=== PATIENT | female | born 1940 | race Caucasian/White ===

== ENCOUNTER 2022-04-05 11:28 | Inpatient (IN) | payer MEDICARE ==
[2022-04-05] MEDS ORDERED: DUONEB 0.5-3 MG/3 ml Neb IH ONE ×2 (12:09→12:14)
[2022-04-05] MEDS ORDERED: solu-MEDROL 125 MG, Sterile H2O 10 ml 2 ML IV ONE ×2 (12:09)
[2022-04-05] MEDS ORDERED: Zofran 4 MG/2 ML VIAL IV ONE (12:16)
[2022-04-05] MEDS ORDERED: MORPHINE SULFATE 2 MG INJ IV ONE (12:16)
[2022-04-05 12:18] LABS: Absolute Neutrophil Ct (ANC) 18.29 x10^3/uL (1.4-6.9); Basophil (Absolute #) 0.07 x10^3/uL (0-0.4); Eosinophil % 0.1 % (0.00-5.0); Eosinophil (Absolute #) 0.03 x10^3/uL (0-0.5); Hematocrit 40.3 % (35-47); Hemoglobin 12.9 g/dL (12.0-16.0); Lymphocyte (Absolute #) 3.07 x10^3/uL (1.0-4.6); Lymphocytes % 13.5 % (24.0-44.0); Mean Cell Volume 93.5 fL (78-100); Mean Corpuscular Hemoglobin 29.9 pg (26-32); Mean Platelet Volume 10.7 fL (7.5-11.0); Monocyte (Absolute #) 1.12 x10^3/uL (0.0-1.3); Monocytes % 4.9 % (0.0-12.0); Neutrophil % 80.8 % (36.0-66.0); Platelet Count 321 x10^3/uL (150-450); Red Blood Count 4.31 x10^6/uL (4.1-5.4); Red Cell Distribution Width 13.2 % (11.5-14.0); White Blood Count 22.7 x10^3/uL (4.0-10.5)
[2022-04-05] MEDS ORDERED: Sterile H2O 10 ml IJ ONE (12:20)
[2022-04-05] MEDS ORDERED: MORPHINE SULFATE 2 MG INJ ONE (12:20)
[2022-04-05] MEDS ORDERED: Zofran 4 MG/2 ML VIAL ONE (12:20)
[2022-04-05] MEDS ORDERED: solu-MEDROL ONE (12:21)
--- NOTE | 2022-04-05 12:34 | XRAY ---
Indication: Cough. Comparison: None Portable chest demonstrates mild right infiltrate/atelectasis without consolidation or large effusion. Remaining heart and left lung unremarkable. Bony thorax intact with mild osteopenia and moderate dextrorotoscoliosis.
[2022-04-05] MEDS ORDERED: Levofloxacin 500MG/100ML D5W 500 MG/100 ML BAG IV STA (12:45)
[2022-04-05] MEDS ORDERED: PIPERACILLIN/TAZOBACTAM 3.375 GM in Sodium Chloride 100ML MINI-BAG PLUS 100 ML IV ONE (12:45)
[2022-04-05 13:05] LABS: ALBUMIN 4.3 g/dL (3.5-5.0); ALKALINE PHOSPHATASE 108 U/L (38-126); ANION GAP 9.8 MEQ/L (5-15); BLOOD UREA NITROGEN 11 mg/dL (7-17); CHLORIDE 99 mmol/L (98-107); Calcium 9.2 mg/dL (8.4-10.2); Carbon Dioxide 31 mmol/L (22-30); Creatinine 1 0.48 mg/dL (0.52-1.04); EST GLOMERULAR FILTRATION RATE > 60.0 ML/MIN; Glucose 129 mg/dL (74-106); NT PRO BNP 245 pg/mL (0-1800); Potassium 3.5 mmol/L (3.5-5.1); SGOT/AST 28 U/L (14-36); SGPT/ALT 18 U/L (0-35); SODIUM 136 mmol/L (137-145)
--- NOTE | 2022-04-05 13:07 | XRAY ---
Indication: Pain. No known injury. 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 Elsewhere osteopenia and 2.3 cm calcified uterine fibroid. No other bony, articular, or soft tissue abnormalities.
[2022-04-05 13:18] LABS: INFLUENZA A NEGATIVE (NEGATIVE); INFLUENZA B NEGATIVE (NEGATIVE); RESPIRATORY SYNCTIAL VIRUS NEGATIVE (Negative); SARS-CoV-2 Xpert Express NEGATIVE (NEGATIVE)
[2022-04-05] MEDS ORDERED: Sodium Chloride 0.9% 500 ML 500 ML IV ONE ×2 (13:50→14:07)
[2022-04-05] MEDS ORDERED: PIPERACILLIN/TAZOBACTAM IV ONE (13:53)
[2022-04-05] MEDS ORDERED: Sodium Chloride 100ML MINI-BAG PLUS 100 ML IV ONE (13:53)
--- NOTE | 2022-04-05 13:59 | ERPHSYRPT ---
- History of Present Illness Time Seen by Provider: 04/05/22 11:34 Source: patient, family Exam Limitations: clinical condition Patient Subjective Stated Complaint: C/O cough and LLE pain. Nurse[facility] from [facility] states that cough has become progressivly worse over the past 2 weeks. Sister, legal tomlinson is at bedside and concerned about the fever reported to her by the [facility]. Patient is concerned about left leg pain. Triage Nursing Assessment: Patient brought back to ED by W/C. She is alert, speaking rapidly, and deffers to her sister to answer medical questions that she is unsure of. This is patient's normal mental status per Sister's (Alva) reports. Alva indicates patient become more anxious when ill. Patient arrived wearing 02 @ 2L per N/C and sating 88%; oxygen increased to 4L per N/C and increased to 91%. A moist, non-productive cough is noted. Patient was assisted into the bed by 2 staff and s/s of pain were noted to her LLE. Skin is warm to touch, pale. Oral mucosa noted to be dry as well. Physician History: 82 years old female with history of cerebral palsy, chronic respiratory failure on 2 L oxygen is brought in the ER with worsening cough for the last 2 weeks with subjective feeling of fever and chills. Patient also have chronic difficulty swallowing, high risk for aspiration. Patient oxygen saturation is around 88% on 2 L and increasing to 4 L has 92%. Complaining of some chest discomfort because of coughing. She is also complaining of left hip pain without any fall or trauma. Not a good historian and history is limited Timing/Duration: week(s) (2), gradual onset Activities at Onset: activity, rest Severity of Dyspnea-Max: moderate Severity of Dyspnea-Current: moderate Possible Cause: unknown cause Modifying Factors: Improves With: coughing, oxygen Associated Symptoms: cough, fever, wheezing, productive cough, tightness Allergies/Adverse Reactions: No Known Drug Allergies Allergy (Verified 04/05/22 12:03) Home Medications: Acetaminophen 325 mg [Tylenol 325 mg] 325 mg PO Q4HPRN PRN 04/05/22 [History] Albuterol Sulfate [Albuterol Sulfate Hfa] 2 puff IH Q6HPRN PRN 04/05/22 [History] Budesonide/Formoterol Fumarate [Budesonide-Formoterol 160-4.5] 2 puff IH BID 04/05/22 [History] Calcium Carbonate [Calcium] 1,200 mg PO DAILY 04/05/22 [History] Diclofenac Sodium [Voltaren Arthritis Pain] 1 gm TOP Q6HPRN PRN 04/05/22 [History] Guaifenesin 600 mg ER [Mucinex 600MG ER Tabs] 1,200 mg PO BID 04/05/22 [History] Guaifenesin/Dextromethorphan [Coricidin Hbp Chest Jose-Cough] 2 tab PO BIDPRN PRN 04/05/22 [History] Guaifenesin/Dextromethorphan [Guaifenesin-Dm 100-10 mg/5 ml] 10 ml PO Q6HPRN PRN 04/05/22 [History] Hydrocortisone 1% Cream [Cortisone 1% Cream] 1 gm TP Q8HPRN PRN 04/05/22 [History] Hypromellose [Tears Lubricant Eye Drop] 15 ml OP TID 04/05/22 [History] Montelukast Sodium 10 mg [Singulair 10 MG] 10 mg PO HS 04/05/22 [History] Omeprazole 20 mg PO BID 04/05/22 [History] Ondansetron ODT 4 MG [Zofran Odt 4 mg] 4 mg PO Q6HPRN PRN 04/05/22 [History] hydroCHLOROthiazide [Hydrochlorothiazide] 25 mg PO UD 04/05/22 [History] polyethylene glycoL 3350 [Polyethylene Glycol 3350] 17 gm PO DAILY PRN PRN 04/05/22 [History] Hx Tetanus, Diphtheria Vaccination/Date Given: Yes Hx Influenza Vaccination/Date Given: Yes Hx Pneumococcal Vaccination/Date Given: Yes Immunizations Up to Date: Yes Travel Risk - International Travel Have you traveled outside of the country in past 3 weeks: No - Coronavirus Screening Are you exhibiting any of the following symptoms?: Yes Symptoms: Fever, Cough: New Onset, Shortness of Breath Close contact with a COVID-19 positive Pt in past 14-21 Days: Yes - Vaccine Status Have you recieved a Covid-19 vaccination: Yes Cad Intern: Unknown - Vaccination Dates Dates if Unknown: ? - Review of Systems All Other Systems: Unable due to condition - Past Medical History Pertinent Past Medical History: Yes Neurological History: Other Cardiac History: Peripheral Vascular Disease Respiratory History: Pneumonia, Other Musculoskeletal History: Other GI Medical History: GERD Other Medical History: Hemorrhoids, Dysphagia, Seasonal Allergies, Age-related physical debility, Cerebral Palsy, Muscle Weakness, Airway Disease, Atelectasis, contracture requiring splint use to hands at bedtime - Past Surgical History Past Surgical History: Yes Musculoskeletal: Other Other Surgical History: Left hip fracture repair, surgeries as a child related to CP (sister and patient are unaware of the specific names of surgies). - Social History Smoking Status: Never smoker Exposure to second hand smoke: No Drug Use: none Patient Lives Alone: No ([facility]) - Nursing Vital Signs Nursing Vital Signs: Initial Vital Signs Temperature 99.7 F 04/05/22 11:28 Pulse Rate 121 H 04/05/22 11:28 Respiratory Rate 23 04/05/22 11:28 Blood Pressure 150/68 04/05/22 11:28 O2 Sat by Pulse Oximetry 95 04/05/22 11:28 Pain Scale Pain Intensity 0 - Physical Exam General Appearance: no apparent distress, alert Eye Exam: PERRL/EOMI Ears, Nose, Throat Exam: hearing grossly normal, pharyngeal erythema Neck Exam: normal inspection, supple, full range of motion Respiratory Exam: diminished breath sounds, crackles/rales, wheezing Cardiovascular/Chest Exam: normal heart sounds, tachycardia Abdominal/Gastrointestinal Exam: soft, No normal bowel sounds Extremity Exam: limited range of motion (Left hip) Neurologic Exam: alert, oriented x 3, cooperative Skin Exam: normal color SpO2 Interpretation: hypoxic, O2 applied SpO2: 96 O2 Delivery: Nasal Cannula - Course EKG Interpreted by Me: RATE (120), Sinus Tach, NORMAL AXIS, NORMAL INTERVALS, NORMAL QRS, Non-specific ST Changes Ordered Tests: Medication Summary Discontinued Medications Generic Name Dose Route Start Last Admin Trade Name Freq PRN Reason Stop Dose Admin Acetaminophen 650 mg 04/05/22 14:32 04/08/22 13:51 Acetaminophen 325 Mg Tablet PO 05/05/22 14:31 650 mg Q4H PRN PRN Administration PAIN AND/OR FEVER Albuterol Sulfate 2 puff 04/05/22 19:00 Albuterol Common Canister Inhaler 05/05/22 18:59 QIDRT NILTON Albuterol/Ipratropium 3 ml 04/05/22 12:09 04/05/22 12:20 Ipratropium/Albuterol Sulfate 3 Ml Ampul.Neb 04/05/22 12:10 3 ml STAT ONE Administration Albuterol/Ipratropium Confirm 04/05/22 12:14 Ipratropium/Albuterol Sulfate 3 Ml Ampul.Neb Administered 04/05/22 12:15 Dose 3 ml IH .STK-MED ONE Albuterol/Ipratropium 3 ml 04/05/22 15:00 04/05/22 20:13 Ipratropium/Albuterol Sulfate 3 Ml Ampul.Neb 05/05/22 14:59 Not Given QIDRT NILTON Albuterol/Ipratropium 3 ml 04/05/22 19:00 04/09/22 12:57 Ipratropium/Albuterol Sulfate 3 Ml Ampul.Neb 05/05/22 18:59 3 ml Q6HRT NILTON Administration Artificial Tears 0 ml 04/05/22 22:00 04/09/22 11:24 Polyvinyl Alcohol 15 Ml Bottle OP 05/05/22 21:59 15 ml TID NILTON Administration Benzonatate 100 mg 04/07/22 10:00 04/07/22 21:27 Benzonatate 100 Mg Capsule PO 05/07/22 09:59 100 mg QID NILTON Administration Benzonatate 200 mg 04/08/22 10:00 04/09/22 11:23 Benzonatate 100 Mg Capsule PO 05/08/22 09:59 200 mg TID NILTON Administration Calcium Carbonate 2 tab 04/05/22 18:00 04/09/22 11:24 Calcium Carbonate 500 Mg/Vitamin D 1 Tab Tablet PO 05/05/22 17:59 2 tab DAILY NILTON Administration Methylprednisolone Sodium 0 mg 04/05/22 12:09 04/05/22 12:23 Succinate 125 mg/ Sterile IV 04/05/22 12:10 125 mg Water 2 ml STAT ONE Administration Methylprednisolone Sodium 0 mg 04/05/22 18:00 04/09/22 12:42 Succinate 60 mg/ Sterile Water IV 05/05/22 17:59 60 mg 2 ml Q6HT NILTON Administration Diclofenac Sodium 1 gm 04/05/22 17:23 Diclofenac Sodium 100 Gm Gel..Gram. TP 05/05/22 17:22 Q6HPRN PRN PAIN Guaifenesin 1,200 mg 04/05/22 22:00 04/09/22 11:23 Guaifenesin 600 Mg Tablet Er PO 05/05/22 21:59 1,200 mg BID NILTON Administration Hydrochlorothiazide 25 mg 04/07/22 10:00 04/09/22 11:24 Hydrochlorothiazide 25 Mg Tablet PO 05/07/22 09:59 25 mg QOD NILTON Administration Hydrocortisone 0 gm 04/05/22 17:23 Hydrocortisone 1% Cream 28 Gm Tube TP 05/05/22 17:22 Q8HPRN PRN HEMORRHOIDS Levofloxacin/Dextrose 500 mg in 100 mls @ 100 mls/hr 04/05/22 12:45 04/05/22 16:06 Levofloxacin 500mg/100ml D5w IV 04/05/22 13:44 100 mls/hr STAT STA Administration Piperacillin Sod/Tazobactam 100 mls @ 200 mls/hr 04/05/22 12:45 04/05/22 13:54 Sod 3.375 gm/ Sodium Chloride IV 04/05/22 13:14 200 mls/hr STAT ONE Administration Sodium Chloride 500 mls @ 500 mls/hr 04/05/22 13:50 04/05/22 14:08 Sodium Chloride 0.9% 500 Ml IV 04/05/22 14:49 500 mls/hr .Q1H ONE Administration Sodium Chloride Confirm 04/05/22 13:53 Sodium Chloride 100ml Mini-Bag Plus Administered 04/05/22 13:54 Dose 100 mls @ ud IV .STK-MED ONE Sodium Chloride Confirm 04/05/22 14:07 Sodium Chloride 0.9% 500 Ml Administered 04/05/22 14:08 Dose 500 mls @ ud IV .STK-MED ONE Levofloxacin/Dextrose 500 mg in 100 mls @ 100 mls/hr 04/06/22 10:00 Levofloxacin 500mg/100ml D5w IV 05/06/22 09:59 Q24H10 NILTON Piperacillin Sod/Tazobactam 100 mls @ 200 mls/hr 04/05/22 18:00 04/09/22 12:48 Sod 3.375 gm/ Sodium Chloride IV 04/10/22 17:59 200 mls/hr Q6HT NILTON Administration Potassium Chloride/Sodium Chloride 1,000 mls @ 75 mls/hr 04/05/22 14:32 04/08/22 13:52 Sodium Chloride 0.9% W/ 20 Meq Kcl/Liter IV 05/05/22 14:31 75 mls/hr .[id number] NILTON Administration Sodium Chloride Confirm 04/05/22 14:49 Sodium Chloride 0.9% 1000 Ml Administered 04/05/22 14:50 Dose 1,000 mls @ ud .ROUTE .STK-MED ONE Levofloxacin/Dextrose Confirm 04/05/22 14:50 Levofloxacin 500mg/100ml D5w Administered 04/05/22 14:51 Dose 500 mg in 100 mls @ ud IV .STK-MED ONE Levofloxacin/Dextrose 750 mg in 150 mls @ 100 mls/hr 04/06/22 22:00 04/08/22 23:31 Levofloxacin 750mg/150ml D5w IV 05/06/22 21:59 100 mls/hr Q48H NILTON Administration Methylprednisolone Sodium Succinate Confirm 04/05/22 12:21 Methylprednis Sod Succ 125 Mg/2 Ml Vial Administered 04/05/22 12:22 Dose 125 mg .ROUTE .STK-MED ONE Miscellaneous Information 1 each 04/05/22 17:45 Medication Intervention 1 Each Each 05/05/22 17:44 .RN TO CHECK NILTON Montelukast Sodium 10 mg 04/05/22 22:00 04/08/22 23:31 Montelukast Sodium 10 Mg Tablet PO 05/05/22 21:59 10 mg HS NILTON Administration Morphine Sulfate 2 mg 04/05/22 12:16 04/05/22 12:23 Morphine Sulfate 2 Mg/Ml Inj IV 04/05/22 12:17 2 mg STAT ONE Administration Morphine Sulfate Confirm 04/05/22 12:20 Morphine Sulfate 2 Mg/Ml Inj Administered 04/05/22 12:21 Dose 2 mg .ROUTE .STK-MED ONE Morphine Sulfate 2 mg 04/05/22 14:32 04/07/22 02:49 Morphine Sulfate 2 Mg/Ml Inj IV 04/10/22 14:31 2 mg Q4H PRN PRN Administration PAIN Non-Formulary Medication 1 each 04/05/22 18:03 04/05/22 20:13 Pharmacy Dosing Request 04/05/22 18:04 Not Given STAT ONE Ondansetron HCl 4 mg 04/05/22 12:16 04/05/22 12:23 Ondansetron Hcl 4 Mg/2 Ml Vial IV 04/05/22 12:17 4 mg STAT ONE Administration Ondansetron HCl Confirm 04/05/22 12:20 Ondansetron Hcl 4 Mg/2 Ml Vial Administered 04/05/22 12:21 Dose 4 mg .ROUTE .STK-MED ONE Ondansetron HCl 4 mg 04/05/22 14:32 Ondansetron Hcl 4 Mg/2 Ml Vial IV 05/05/22 14:31 Q6H PRN PRN NAUSEA/VOMITING Ondansetron HCl 4 mg 04/05/22 17:23 Zofran 4 Mg/Udtablet Orally Disintegrating PO 05/05/22 17:22 Q6HPRN PRN NAUSEA Pantoprazole Sodium 40 mg 04/05/22 16:00 04/05/22 16:04 Pantoprazole 40 Mg Vial IV 05/05/22 15:59 40 mg Q24H10 NILTON Administration Pantoprazole Sodium 40 mg 04/05/22 22:00 04/09/22 11:24 Protonix (Pantoprazole) 40 Mg Tablet PO 05/05/22 21:59 40 mg BID NILTON Administration Piperacillin Sod/Tazobactam Sod Confirm 04/05/22 13:53 Piperacillin/Tazobactam Sodium 3.375 Gm Vial Administered 04/05/22 13:54 Dose 3.375 gm IV .STK-MED ONE Polyethylene Glycol 17 gm 04/05/22 17:23 Polyethylene Glycol 3350 17 Gm Packet PO 05/05/22 17:22 DAILY PRN PRN CONSTIPATION Potassium Bicarbonate 25 meq 04/09/22 09:29 04/09/22 11:21 Potassium Bicarbonate 25 Meq Tab PO 04/09/22 09:30 25 meq STAT ONE Administration Fluticasone/Salmeterol 2 puff 04/05/22 19:00 04/09/22 07:29 Fluticasone/Salmeterol 230/21 Common Canister IH 05/05/22 18:59 2 puff BIDRT NILTON Administration Sterile Water Confirm 04/05/22 12:20 Water For Injection,Sterile 10 Ml Vial Administered 04/05/22 12:21 Dose 10 ml IJ .STK-MED ONE Lab/Rad Data: Laboratory Result Diagrams 04/06/22 05:15 04/06/22 05:15 Laboratory Results 04/06/22 04/06/22 04/05/22 Range/Units 05:15 05:15 Unknown WBC 17.4 H (4.0-10.5) x10^3/uL RBC 3.67 L (4.1-5.4) x10^6/uL Hgb 10.8 L (12.0-16.0) g/dL Hct 36.5 (35-47) % MCV 99.5 D (78-100) fL MCH 29.4 (26-32) pg MCHC 29.6 L (32-36) g/dL RDW 13.3 (11.5-14.0) % Plt Count 258 (150-450) x10^3/uL MPV 10.7 (7.5-11.0) fL Gran % 93.0 H (36.0-66.0) % Immature Gran % (Auto) 0.4 (0.00-0.4) % Nucleat RBC Rel Count 0.0 (0.00-0.1) % Eos # (Auto) 0 (0-0.5) x10^3/uL Immature Gran # (Auto) 0.07 H (0.00-0.03) x10^3u/L Absolute Lymphs (auto) 1.04 (1.0-4.6) x10^3/uL Absolute Monos (auto) 0.09 (0.0-1.3) x10^3/uL Absolute Nucleated RBC 0.00 (0.00-0.01) x10^3u/L Lymphocytes % 6.0 L (24.0-44.0) % Monocytes % 0.5 (0.0-12.0) % Eosinophils % 0.0 (0.00-5.0) % Basophils % 0.1 (0.0-0.4) % Absolute Granulocytes 16.14 H (1.4-6.9) x10^3/uL Basophils # 0.02 (0-0.4) x10^3/uL Sodium 139 (137-145) mmol/L Potassium 3.7 (3.5-5.1) mmol/L Chloride 107 (98-107) mmol/L Carbon Dioxide 26 (22-30) mmol/L Anion Gap 9.5 (5-15) MEQ/L BUN 18 H (7-17) mg/dL Creatinine 0.54 (0.52-1.04) mg/dL Estimated GFR > 60.0 ML/MIN Glucose 193 H (74-106) mg/dL Lactic Acid (0.4-2.0) Calcium 8.6 (8.4-10.2) mg/dL Magnesium (1.6-2.3) mg/dL Total Bilirubin 0.40 (0.2-1.3) mg/dL AST 19 (14-36) U/L ALT 18 (0-35) U/L Alkaline Phosphatase 81 (38-126) U/L Troponin I (0.000-0.034) ng/mL NT-Pro-B Natriuret Pep (0-1800) pg/mL Serum Total Protein 6.7 (6.3-8.2) g/dL Albumin 3.4 L (3.5-5.0) g/dL Procalcitonin 0.092 H (0.030-0.080) ng/mL Influenza Type A Ag (NEGATIVE) Influenza Type B Ag (NEGATIVE) RSV (PCR) (Negative) SARS-CoV-2 (PCR) (NEGATIVE) 04/05/22 04/05/22 04/05/22 Range/Units 20:00 15:55 12:25 WBC (4.0-10.5) x10^3/uL RBC (4.1-5.4) x10^6/uL Hgb (12.0-16.0) g/dL Hct (35-47) % MCV (78-100) fL MCH (26-32) pg MCHC (32-36) g/dL RDW (11.5-14.0) % Plt Count (150-450) x10^3/uL MPV (7.5-11.0) fL Gran % (36.0-66.0) % Immature Gran % (Auto) (0.00-0.4) % Nucleat RBC Rel Count (0.00-0.1) % Eos # (Auto) (0-0.5) x10^3/uL Immature Gran # (Auto) (0.00-0.03) x10^3u/L Absolute Lymphs (auto) (1.0-4.6) x10^3/uL Absolute Monos (auto) (0.0-1.3) x10^3/uL Absolute Nucleated RBC (0.00-0.01) x10^3u/L Lymphocytes % (24.0-44.0) % Monocytes % (0.0-12.0) % Eosinophils % (0.00-5.0) % Basophils % (0.0-0.4) % Absolute Granulocytes (1.4-6.9) x10^3/uL Basophils # (0-0.4) x10^3/uL Sodium (137-145) mmol/L Potassium (3.5-5.1) mmol/L Chloride (98-107) mmol/L Carbon Dioxide (22-30) mmol/L Anion Gap (5-15) MEQ/L BUN (7-17) mg/dL Creatinine (0.52-1.04) mg/dL Estimated GFR ML/MIN Glucose (74-106) mg/dL Lactic Acid (0.4-2.0) Calcium (8.4-10.2) mg/dL Magnesium (1.6-2.3) mg/dL Total Bilirubin (0.2-1.3) mg/dL AST (14-36) U/L ALT (0-35) U/L Alkaline Phosphatase (38-126) U/L Troponin I < 0.012 < 0.012 (0.000-0.034) ng/mL NT-Pro-B Natriuret Pep (0-1800) pg/mL Serum Total Protein (6.3-8.2) g/dL Albumin (3.5-5.0) g/dL Procalcitonin (0.030-0.080) ng/mL Influenza Type A Ag NEGATIVE (NEGATIVE) Influenza Type B Ag NEGATIVE (NEGATIVE) RSV (PCR) NEGATIVE (Negative) SARS-CoV-2 (PCR) NEGATIVE (NEGATIVE) 04/05/22 04/05/22 04/05/22 Range/Units 12:25 11:59 11:59 WBC (4.0-10.5) x10^3/uL RBC (4.1-5.4) x10^6/uL Hgb (12.0-16.0) g/dL Hct (35-47) % MCV (78-100) fL MCH (26-32) pg MCHC (32-36) g/dL RDW (11.5-14.0) % Plt Count (150-450) x10^3/uL MPV (7.5-11.0) fL Gran % (36.0-66.0) % Immature Gran % (Auto) (0.00-0.4) % Nucleat RBC Rel Count (0.00-0.1) % Eos # (Auto) (0-0.5) x10^3/uL Immature Gran # (Auto) (0.00-0.03) x10^3u/L Absolute Lymphs (auto) (1.0-4.6) x10^3/uL Absolute Monos (auto) (0.0-1.3) x10^3/uL Absolute Nucleated RBC (0.00-0.01) x10^3u/L Lymphocytes % (24.0-44.0) % Monocytes % (0.0-12.0) % Eosinophils % (0.00-5.0) % Basophils % (0.0-0.4) % Absolute Granulocytes (1.4-6.9) x10^3/uL Basophils # (0-0.4) x10^3/uL Sodium 136 L (137-145) mmol/L Potassium 3.5 (3.5-5.1) mmol/L Chloride 99 (98-107) mmol/L Carbon Dioxide 31 H (22-30) mmol/L Anion Gap 9.8 (5-15) MEQ/L BUN 11 (7-17) mg/dL Creatinine 0.48 L (0.52-1.04) mg/dL Estimated GFR > 60.0 ML/MIN Glucose 129 H (74-106) mg/dL Lactic Acid 1.2 (0.4-2.0) Calcium 9.2 (8.4-10.2) mg/dL Magnesium 2.0 (1.6-2.3) mg/dL Total Bilirubin 0.70 (0.2-1.3) mg/dL AST 28 (14-36) U/L ALT 18 (0-35) U/L Alkaline Phosphatase 108 (38-126) U/L Troponin I < 0.012 (0.000-0.034) ng/mL NT-Pro-B Natriuret Pep 245 (0-1800) pg/mL Serum Total Protein 8.0 (6.3-8.2) g/dL Albumin 4.3 (3.5-5.0) g/dL Procalcitonin (0.030-0.080) ng/mL Influenza Type A Ag (NEGATIVE) Influenza Type B Ag (NEGATIVE) RSV (PCR) (Negative) SARS-CoV-2 (PCR) (NEGATIVE) 04/05/22 Range/Units 11:59 WBC 22.7 H (4.0-10.5) x10^3/uL RBC 4.31 (4.1-5.4) x10^6/uL Hgb 12.9 (12.0-16.0) g/dL Hct 40.3 (35-47) % MCV 93.5 (78-100) fL MCH 29.9 (26-32) pg MCHC 32.0 (32-36) g/dL RDW 13.2 (11.5-14.0) % Plt Count 321 (150-450) x10^3/uL MPV 10.7 (7.5-11.0) fL Gran % 80.8 H (36.0-66.0) % Immature Gran % (Auto) 0.4 (0.00-0.4) % Nucleat RBC Rel Count 0.0 (0.00-0.1) % Eos # (Auto) 0.03 (0-0.5) x10^3/uL Immature Gran # (Auto) 0.09 H (0.00-0.03) x10^3u/L Absolute Lymphs (auto) 3.07 (1.0-4.6) x10^3/uL Absolute Monos (auto) 1.12 (0.0-1.3) x10^3/uL Absolute Nucleated RBC 0.00 (0.00-0.01) x10^3u/L Lymphocytes % 13.5 L (24.0-44.0) % Monocytes % 4.9 (0.0-12.0) % Eosinophils % 0.1 (0.00-5.0) % Basophils % 0.3 (0.0-0.4) % Absolute Granulocytes 18.29 H (1.4-6.9) x10^3/uL Basophils # 0.07 (0-0.4) x10^3/uL Sodium (137-145) mmol/L Potassium (3.5-5.1) mmol/L Chloride (98-107) mmol/L Carbon Dioxide (22-30) mmol/L Anion Gap (5-15) MEQ/L BUN (7-17) mg/dL Creatinine (0.52-1.04) mg/dL Estimated GFR ML/MIN Glucose (74-106) mg/dL Lactic Acid (0.4-2.0) Calcium (8.4-10.2) mg/dL Magnesium (1.6-2.3) mg/dL Total Bilirubin (0.2-1.3) mg/dL AST (14-36) U/L ALT (0-35) U/L Alkaline Phosphatase (38-126) U/L Troponin I (0.000-0.034) ng/mL NT-Pro-B Natriuret Pep (0-1800) pg/mL Serum Total Protein (6.3-8.2) g/dL Albumin (3.5-5.0) g/dL Procalcitonin (0.030-0.080) ng/mL Influenza Type A Ag (NEGATIVE) Influenza Type B Ag (NEGATIVE) RSV (PCR) (Negative) SARS-CoV-2 (PCR) (NEGATIVE) - Progress Progress: improved Air Movement: fair Progress Note: 04/05/22 14:07 She is given DuoNeb and Solu-Medrol, increased oxygen to 4 L. Feeling better on reevaluation. She is also given symptomatic treatment for pain left hip. X- ray is chest showed right-sided infiltrative process with a white count of 22 and started on broad-spectrum antibiotics covering for aspiration. X-ray hip is negative for fracture dislocation. Discussed with Dr. Gastelum and patient is admitted. Blood Culture(s) Obtained: Yes Antibiotics given: Yes Discussed with : Benjamin Will see patient in: hospital (observation) Counseled pt/family regarding: lab results, diagnosis, rad results - Departure Departure Disposition: Observation Clinical Impression: Pneumonia Qualifiers: Laterality: right Respiratory failure Qualifiers: Chronicity: acute on chronic Respiratory failure complication: hypoxia Qualified Code(s): J96.21 - Acute and chronic respiratory failure with hypoxia Condition: Stable Critical Care Time: No
[2022-04-05] MEDS ORDERED: MORPHINE SULFATE 2 MG INJ IV PRN (14:32)
[2022-04-05] MEDS ORDERED: Zofran 4 MG/2 ML VIAL IV PRN (14:32)
[2022-04-05] MEDS ORDERED: Sodium Chloride 0.9% 1000 ML 0 ML ONE (14:49)
[2022-04-05] MEDS ORDERED: Levofloxacin 500MG/100ML D5W 500 MG/100 ML BAG IV ONE (14:50)
[2022-04-05] MEDS ORDERED: DUONEB 0.5-3 MG/3 ml Neb IH SCH (15:00)
[2022-04-05] MEDS ORDERED: PROTONIX 40 MG IV IV SCH (16:00)
[2022-04-05] MEDS: Sodium Chloride 0.9% W/ 20 mEq KCl/LITER 1,000 ML IV SCH (16:01)
[2022-04-05] MEDS ORDERED: [UNRECOGNIZED DRUG - OTHER] PO PRN (17:23)
[2022-04-05] MEDS ORDERED: CORTISONE 1% CREAM TP PRN (17:23)
[2022-04-05] MEDS ORDERED: DICLOFENAC SODIUM TP PRN (17:23)
[2022-04-05] MEDS ORDERED: Miralax Powder 17GM PACKET PO PRN (17:23)
[2022-04-05] MEDS ORDERED: GUAIFENESIN PO PRN (17:23)
[2022-04-05] MEDS ORDERED: ZOFRAN ODT 4 MG PO PRN (17:23)
[2022-04-05] MEDS ORDERED: MEDICATION INTERVENTION MC SCH (17:45)
[2022-04-05] MEDS ORDERED: PHARMACY DOSING REQUEST MC ONE (18:03)
[2022-04-05] MEDS: PIPERACILLIN/TAZOBACTAM 3.375 GM in Sodium Chloride 100ML MINI-BAG PLUS 100 ML IV SCH ×2 (18:24→23:54)
[2022-04-05] MEDS: Calcium 500MG W/Vit D Tablet PO SCH (18:24)
[2022-04-05] MEDS: solu-MEDROL 60 MG, Sterile H2O 10 ml 2 ML IV SCH ×4 (18:25→23:54)
[2022-04-05] MEDS: DUONEB 0.5-3 MG/3 ml Neb IH SCH (18:39)
[2022-04-05] MEDS: Advair Hfa 230/21 Mcg COMMON CANISTER IH SCH (18:39)
[2022-04-05] MEDS ORDERED: VENTOLIN COMMON CANISTER IH SCH (19:00)
[2022-04-05] MEDS ORDERED: HYPROMELLOSE OP SCH (22:00)
[2022-04-05] MEDS ORDERED: NON-FORMULARY ITEM (Omeprazole [Omeprazole] 20 MG Capsule.Dr) PO SCH (22:00)
[2022-04-05] MEDS: Artificial Tears 15 ML OP SCH (22:22)
[2022-04-05] MEDS: Mucinex 600MG ER Tabs PO SCH (22:22)
[2022-04-05] MEDS: Singulair 10 MG PO SCH (22:22)
[2022-04-05] MEDS: Protonix 40MG Tablet PO SCH (22:22)
[2022-04-06] MEDS: DUONEB 0.5-3 MG/3 ml Neb IH SCH ×4 (01:12→19:38)
[2022-04-06 05:44] LABS: Absolute Neutrophil Ct (ANC) 16.14 x10^3/uL (1.4-6.9); Basophil (Absolute #) 0.02 x10^3/uL (0-0.4); Eosinophil (Absolute #) 0 x10^3/uL (0-0.5); Hematocrit 36.5 % (35-47); Hemoglobin 10.8 g/dL (12.0-16.0); Lymphocyte (Absolute #) 1.04 x10^3/uL (1.0-4.6); Mean Cell Volume 99.5 fL (78-100); Mean Corpuscular Hemoglobin 29.4 pg (26-32); Mean Corpuscular Hgb Concent. 29.6 g/dL (32-36); Mean Platelet Volume 10.7 fL (7.5-11.0); Monocyte (Absolute #) 0.09 x10^3/uL (0.0-1.3); Monocytes % 0.5 % (0.0-12.0); Platelet Count 258 x10^3/uL (150-450); Red Blood Count 3.67 x10^6/uL (4.1-5.4); Red Cell Distribution Width 13.3 % (11.5-14.0); White Blood Count 17.4 x10^3/uL (4.0-10.5)
[2022-04-06 06:12] LABS: ALBUMIN 3.4 g/dL (3.5-5.0); ALKALINE PHOSPHATASE 81 U/L (38-126); ANION GAP 9.5 MEQ/L (5-15); BLOOD UREA NITROGEN 18 mg/dL (7-17); CHLORIDE 107 mmol/L (98-107); Calcium 8.6 mg/dL (8.4-10.2); Carbon Dioxide 26 mmol/L (22-30); Creatinine 1 0.54 mg/dL (0.52-1.04); EST GLOMERULAR FILTRATION RATE > 60.0 ML/MIN; Glucose 193 mg/dL (74-106); Potassium 3.7 mmol/L (3.5-5.1); SGOT/AST 19 U/L (14-36); SGPT/ALT 18 U/L (0-35); SODIUM 139 mmol/L (137-145); Total Protein 6.7 g/dL (6.3-8.2)
[2022-04-06] MEDS: solu-MEDROL 60 MG, Sterile H2O 10 ml 2 ML IV SCH ×6 (06:37→18:18)
[2022-04-06] MEDS: PIPERACILLIN/TAZOBACTAM 3.375 GM in Sodium Chloride 100ML MINI-BAG PLUS 100 ML IV SCH ×3 (06:38→17:28)
[2022-04-06] MEDS: Sodium Chloride 0.9% W/ 20 mEq KCl/LITER 1,000 ML IV SCH ×2 (06:40→20:31)
[2022-04-06] MEDS: Advair Hfa 230/21 Mcg COMMON CANISTER IH SCH ×2 (07:55→19:38)
[2022-04-06] MEDS: Mucinex 600MG ER Tabs PO SCH ×2 (09:38→22:01)
[2022-04-06] MEDS: Calcium 500MG W/Vit D Tablet PO SCH (09:39)
[2022-04-06] MEDS: Artificial Tears 15 ML OP SCH ×3 (09:40→22:01)
[2022-04-06] MEDS: Protonix 40MG Tablet PO SCH ×2 (09:40→22:01)
[2022-04-06] MEDS ORDERED: Levofloxacin 500MG/100ML D5W 500 MG/100 ML BAG IV SCH (10:00)
[2022-04-06] MEDS ORDERED: NON-FORMULARY ITEM (Calcium Carbonate [Calcium] 600 MG Tablet) PO SCH (10:00)
--- NOTE | 2022-04-06 18:51 | PCM.HP ---
History of Present Illness - Chief Complaint Chief Complaint: pneumonia, respiratory failure History of Present Illness: is a 82 year old female patient with Cerebral Palsy who resides at [facility] c/o cough x 2 weeks and fever .ER evaluation shows right sided pneumonia with WBC 22,000. - Review of Systems Constitutional: Fever, Malaise Respiratory: Cough, Wheezing Neurological: Other (CP afecting use of right side ) All Other Systems: Unable due to condition Medications & Allergies Home Medications: Home Medication List Acetaminophen 325 mg [Tylenol 325 mg] 325 mg PO Q4HPRN PRN 04/05/22 [History Confirmed 04/05/22] Albuterol Sulfate [Albuterol Sulfate Hfa] 2 puff IH Q6HPRN PRN 04/05/22 [History Confirmed 04/05/22] Budesonide/Formoterol Fumarate [Budesonide-Formoterol 160-4.5] 2 puff IH BID 04/05/22 [History Confirmed 04/05/22] Calcium Carbonate [Calcium] 1,200 mg PO DAILY 04/05/22 [History Confirmed 04/05/22] Diclofenac Sodium [Voltaren Arthritis Pain] 1 gm TOP Q6HPRN PRN 04/05/22 [History Confirmed 04/05/22] Guaifenesin 600 mg ER [Mucinex 600MG ER Tabs] 1,200 mg PO BID 04/05/22 [History Confirmed 04/05/22] Guaifenesin/Dextromethorphan [Coricidin Hbp Chest Jose-Cough] 2 tab PO BIDPRN PRN 04/05/22 [History Confirmed 04/05/22] Guaifenesin/Dextromethorphan [Guaifenesin-Dm 100-10 mg/5 ml] 10 ml PO Q6HPRN PRN 04/05/22 [History Confirmed 04/05/22] Hydrocortisone 1% Cream [Cortisone 1% Cream] 1 gm TP Q8HPRN PRN 04/05/22 [History Confirmed 04/05/22] Hypromellose [Tears Lubricant Eye Drop] 15 ml OP TID 04/05/22 [History Confirmed 04/05/22] Montelukast Sodium 10 mg [Singulair 10 MG] 10 mg PO HS 04/05/22 [History Confirmed 04/05/22] Omeprazole 20 mg PO BID 04/05/22 [History Confirmed 04/05/22] Ondansetron ODT 4 MG [Zofran Odt 4 mg] 4 mg PO Q6HPRN PRN 04/05/22 [History Confirmed 04/05/22] hydroCHLOROthiazide [Hydrochlorothiazide] 25 mg PO UD 04/05/22 [History Confir med 04/05/22] polyethylene glycoL 3350 [Polyethylene Glycol 3350] 17 gm PO DAILY PRN PRN 04/05/22 [History Confirmed 04/05/22] Allergies/Adverse Reactions: Allergies Allergy/AdvReac Type Severity Reaction Status Date / Time No Known Drug Allergies Allergy Verified 04/05/22 12:03 - Past Medical History Past Medical History: Yes Neurological History: Other Cardiac History: Peripheral Vascular Disease Respiratory History: Pneumonia, Other Musculoskelatal History: Other GI Medical History: GERD Comment: Hemorrhoids, Dysphagia, Seasonal Allergies, Age-related physical de bility, Cerebral Palsy, Muscle Weakness, Airway Disease, Atelectasis, contracture requiring splint use to hands at bedtime-- health history obtained from sn[facility] records - Female History Are you now?: No - Past Surgical History Past Surgical History: Yes Musculskeletal Surgical Hx: Other Other Surgical History: Left hip fracture repair, surgeries as a child related to CP (sister and patient are unaware of the specific names of surgeries). - Social History Smoking Status: Unknown if ever smoked Exposure to second hand smoke: No Alcohol: None Drug Use: none - Physical Exam Vital Signs: Vital Signs - 24 hr Temp Pulse Resp BP Pulse Ox 04/06/22 16:00 98.1 F 100 H 18 119/66 94 L 04/06/22 14:10 96 H 16 92 L 04/06/22 11:57 98.0 F 98 H 16 110/55 92 L 04/06/22 07:59 98.0 F 94 H 16 110/59 88 L 04/06/22 07:24 93 H 18 92 L 04/06/22 04:00 96.9 F 88 16 90/51 92 L 04/06/22 01:12 93 H 18 93 L 04/05/22 23:33 97.5 F 101 H 17 108/58 90 L 04/05/22 20:00 97.7 F 105 H 16 115/56 92 L General Appearance: no apparent distress, alert Neurologic Exam: alert, motor deficits (chronic right sided), dysarthria (chronic) Eye Exam: PERRL/EOMI Ears, Nose, Throat Exam: moist mucous membranes, pharyngeal erythema Neck Exam: normal inspection Respiratory Exam: diminished breath sounds, crackles/rales, wheezing Cardiovascular Exam: tachycardia (regular) Pelvic Exam: not done Rectal Exam: not done Extremity Exam: other (right hand contracture) Skin Exam: normal color, warm, dry Results - Labs Lab/Micro Results: Lab Results-Last 24 Hours 04/05/22 04/06/22 04/06/22 Range/Units 20:00 05:15 05:15 WBC 17.4 H (4.0-10.5) x10^3/uL RBC 3.67 L (4.1-5.4) x10^6/uL Hgb 10.8 L (12.0-16.0) g/dL Hct 36.5 (35-47) % MCV 99.5 D (78-100) fL MCH 29.4 (26-32) pg MCHC 29.6 L (32-36) g/dL RDW 13.3 (11.5-14.0) % Plt Count 258 (150-450) x10^3/uL MPV 10.7 (7.5-11.0) fL Gran % 93.0 H (36.0-66.0) % Immature Gran % (Auto) 0.4 (0.00-0.4) % Nucleat RBC Rel Count 0.0 (0.00-0.1) % Eos # (Auto) 0 (0-0.5) x10^3/uL Immature Gran # (Auto) 0.07 H (0.00-0.03) x10^3u/L Absolute Lymphs (auto) 1.04 (1.0-4.6) x10^3/uL Absolute Monos (auto) 0.09 (0.0-1.3) x10^3/uL Absolute Nucleated RBC 0.00 (0.00-0.01) x10^3u/L Lymphocytes % 6.0 L (24.0-44.0) % Monocytes % 0.5 (0.0-12.0) % Eosinophils % 0.0 (0.00-5.0) % Basophils % 0.1 (0.0-0.4) % Absolute Granulocytes 16.14 H (1.4-6.9) x10^3/uL Basophils # 0.02 (0-0.4) x10^3/uL Sodium 139 (137-145) mmol/L Potassium 3.7 (3.5-5.1) mmol/L Chloride 107 (98-107) mmol/L Carbon Dioxide 26 (22-30) mmol/L Anion Gap 9.5 (5-15) MEQ/L BUN 18 H (7-17) mg/dL Creatinine 0.54 (0.52-1.04) mg/dL Estimated GFR > 60.0 ML/MIN Glucose 193 H (74-106) mg/dL Calcium 8.6 (8.4-10.2) mg/dL Total Bilirubin 0.40 (0.2-1.3) mg/dL AST 19 (14-36) U/L ALT 18 (0-35) U/L Alkaline Phosphatase 81 (38-126) U/L Troponin I < 0.012 (0.000-0.034) ng/mL Serum Total Protein 6.7 (6.3-8.2) g/dL Albumin 3.4 L (3.5-5.0) g/dL - Radiology Impressions Radiology Exams & Impressions: Radiology Procedures Category Date Time Status CHEST 1 VIEW (PORTABLE) Stat Exams 04/05/22 12:21 Completed HIP UNI (2V) INCL PEL IF DONE Stat Exams 04/05/22 12:16 Completed Assessment/Plan (1) Pneumonia Current Visit: Yes Status: Acute Qualifiers: Laterality: right Assessment & Plan: IV antibiotics and RT as started in ER,IV fluids,monitor Code(s): J18.9 - PNEUMONIA, UNSPECIFIED ORGANISM (2) Respiratory failure Current Visit: Yes Status: Chronic Qualifiers: Chronicity: acute on chronic Respiratory failure complication: hypoxia Qualified Code(s): J96.21 - Acute and chronic respiratory failure with hypoxia Assessment & Plan: RT following sats,neb txs Code(s): J96.90 - RESPIRATORY FAILURE, UNSP, UNSP W HYPOXIA OR HYPERCAPNIA (3) Cerebral palsy Current Visit: Yes Status: Chronic Code(s): G80.9 - CEREBRAL PALSY, UNSPECIFIED
[2022-04-06] MEDS: Singulair 10 MG PO SCH (22:01)
[2022-04-06] MEDS: LEVOFLOXACIN 750MG/150ML D5W 750 MG/150 ML BAG IV SCH (22:01)
[2022-04-07] MEDS: solu-MEDROL 60 MG, Sterile H2O 10 ml 2 ML IV SCH ×8 (00:26→18:10)
[2022-04-07] MEDS: PIPERACILLIN/TAZOBACTAM 3.375 GM in Sodium Chloride 100ML MINI-BAG PLUS 100 ML IV SCH ×4 (00:26→18:09)
[2022-04-07] MEDS: TYLENOL 325 MG PO PRN ×4 (00:32→21:28)
[2022-04-07] MEDS: DUONEB 0.5-3 MG/3 ml Neb IH SCH ×4 (01:37→18:53)
[2022-04-07 05:19] LABS: Absolute Neutrophil Ct (ANC) 15.42 x10^3/uL (1.4-6.9); Basophil (Absolute #) 0.02 x10^3/uL (0-0.4); Eosinophil (Absolute #) 0 x10^3/uL (0-0.5); Hemoglobin 10.3 g/dL (12.0-16.0); Lymphocyte (Absolute #) 0.62 x10^3/uL (1.0-4.6); Lymphocytes % 3.8 % (24.0-44.0); Mean Cell Volume 98.6 fL (78-100); Mean Corpuscular Hemoglobin 29.9 pg (26-32); Mean Corpuscular Hgb Concent. 30.3 g/dL (32-36); Mean Platelet Volume 11.1 fL (7.5-11.0); Monocyte (Absolute #) 0.33 x10^3/uL (0.0-1.3); Neutrophil % 93.7 % (36.0-66.0); Platelet Count 265 x10^3/uL (150-450); Red Blood Count 3.45 x10^6/uL (4.1-5.4); Red Cell Distribution Width 13.6 % (11.5-14.0); White Blood Count 16.5 x10^3/uL (4.0-10.5)
[2022-04-07] MEDS: Advair Hfa 230/21 Mcg COMMON CANISTER IH SCH ×2 (06:28→18:54)
[2022-04-07 06:39] LABS: ALBUMIN 3.4 g/dL (3.5-5.0); ALKALINE PHOSPHATASE 71 U/L (38-126); ANION GAP 10.4 MEQ/L (5-15); BLOOD UREA NITROGEN 26 mg/dL (7-17); CHLORIDE 113 mmol/L (98-107); Calcium 8.4 mg/dL (8.4-10.2); Carbon Dioxide 24 mmol/L (22-30); Creatinine 1 0.54 mg/dL (0.52-1.04); EST GLOMERULAR FILTRATION RATE > 60.0 ML/MIN; Glucose 130 mg/dL (74-106); SGOT/AST 28 U/L (14-36); SGPT/ALT 28 U/L (0-35); SODIUM 143 mmol/L (137-145); Total Protein 6.6 g/dL (6.3-8.2)
[2022-04-07] MEDS: Tessalon Perles 100 MG PO SCH ×4 (09:44→21:27)
[2022-04-07] MEDS: Calcium 500MG W/Vit D Tablet PO SCH (09:44)
[2022-04-07] MEDS: Mucinex 600MG ER Tabs PO SCH ×2 (09:44→21:27)
[2022-04-07] MEDS: hydroDIURIL 25 MG PO SCH (09:45)
[2022-04-07] MEDS: Protonix 40MG Tablet PO SCH ×2 (09:45→21:27)
[2022-04-07] MEDS: Artificial Tears 15 ML OP SCH ×3 (09:45→21:26)
[2022-04-07] MEDS: Sodium Chloride 0.9% W/ 20 mEq KCl/LITER 1,000 ML IV SCH (13:55)
[2022-04-07] MEDS: Singulair 10 MG PO SCH (21:27)
[2022-04-08] MEDS: Sodium Chloride 0.9% W/ 20 mEq KCl/LITER 1,000 ML IV SCH ×3 (00:02→13:52)
[2022-04-08] MEDS: PIPERACILLIN/TAZOBACTAM 3.375 GM in Sodium Chloride 100ML MINI-BAG PLUS 100 ML IV SCH ×4 (00:53→18:38)
[2022-04-08] MEDS: solu-MEDROL 60 MG, Sterile H2O 10 ml 2 ML IV SCH ×8 (00:53→18:37)
[2022-04-08] MEDS: DUONEB 0.5-3 MG/3 ml Neb IH SCH ×4 (01:25→18:34)
[2022-04-08] MEDS: TYLENOL 325 MG PO PRN ×2 (06:32→13:51)
[2022-04-08] MEDS: Advair Hfa 230/21 Mcg COMMON CANISTER IH SCH ×2 (07:35→18:44)
[2022-04-08] MEDS: Artificial Tears 15 ML OP SCH ×3 (10:14→23:31)
[2022-04-08] MEDS: Protonix 40MG Tablet PO SCH ×2 (10:14→23:31)
[2022-04-08] MEDS: Mucinex 600MG ER Tabs PO SCH ×2 (10:15→23:31)
[2022-04-08] MEDS: Tessalon Perles 100 MG PO SCH ×3 (10:16→23:32)
[2022-04-08] MEDS: Calcium 500MG W/Vit D Tablet PO SCH (10:16)
[2022-04-08] MEDS: Singulair 10 MG PO SCH (23:31)
[2022-04-08] MEDS: LEVOFLOXACIN 750MG/150ML D5W 750 MG/150 ML BAG IV SCH (23:31)
[2022-04-09] MEDS: solu-MEDROL 60 MG, Sterile H2O 10 ml 2 ML IV SCH ×6 (00:47→12:42)
[2022-04-09] MEDS: PIPERACILLIN/TAZOBACTAM 3.375 GM in Sodium Chloride 100ML MINI-BAG PLUS 100 ML IV SCH ×3 (01:45→12:48)
[2022-04-09] MEDS: DUONEB 0.5-3 MG/3 ml Neb IH SCH ×3 (01:57→12:57)
[2022-04-09 06:17] LABS: Hematocrit 35.5 % (35-47); Hemoglobin 11.2 g/dL (12.0-16.0); Mean Cell Volume 94.7 fL (78-100); Mean Corpuscular Hemoglobin 29.9 pg (26-32); Mean Corpuscular Hgb Concent. 31.5 g/dL (32-36); Mean Platelet Volume 11.1 fL (7.5-11.0); Platelet Count 302 x10^3/uL (150-450); Red Blood Count 3.75 x10^6/uL (4.1-5.4); Red Cell Distribution Width 13.7 % (11.5-14.0); White Blood Count 7.6 x10^3/uL (4.0-10.5)
[2022-04-09 07:12] LABS: ANION GAP 12.5 MEQ/L (5-15); BLOOD UREA NITROGEN 19 mg/dL (7-17); CHLORIDE 108 mmol/L (98-107); Calcium 8.2 mg/dL (8.4-10.2); Carbon Dioxide 25 mmol/L (22-30); Creatinine 1 0.65 mg/dL (0.52-1.04); EST GLOMERULAR FILTRATION RATE > 60.0 ML/MIN; Glucose 150 mg/dL (74-106); Potassium 3.4 mmol/L (3.5-5.1); SODIUM 141 mmol/L (137-145)
[2022-04-09] MEDS: Advair Hfa 230/21 Mcg COMMON CANISTER IH SCH (07:29)
--- NOTE | 2022-04-09 08:44 | XRAY ---
Indication: Follow-up pneumonia. Comparison: April 05, 2022 Portable chest demonstrates new small left base infiltrate/atelectasis/effusion. Right lung bases demonstrates stable mild infiltrate/atelectasis with new tiny effusion. Remaining heart and upper lungs unremarkable.
[2022-04-09] MEDS ORDERED: K-LYTE PO ONE (09:29)
[2022-04-09] MEDS: Mucinex 600MG ER Tabs PO SCH (11:23)
[2022-04-09] MEDS: Tessalon Perles 100 MG PO SCH (11:23)
[2022-04-09] MEDS: Artificial Tears 15 ML OP SCH (11:24)
[2022-04-09] MEDS: Calcium 500MG W/Vit D Tablet PO SCH (11:24)
[2022-04-09] MEDS: Protonix 40MG Tablet PO SCH (11:24)
[2022-04-09] MEDS: hydroDIURIL 25 MG PO SCH (11:24)
--- NOTE | 2022-04-09 15:29 | XRAY ---
Indication: Dysphagia. Modified barium swallow study was performed bedside by the Department of space therapy with fluoroscopic assistance provided. Patient ingested multiple consistencies of liquids and solids. Full report and recommendations will be reported separately. 1 minute 15 seconds fluoroscopy used.
[2022-04-09 16:44] VITALS: BP 153/78; PULSE 80
[2022-04-15 22:11] VITALS: O2SAT 96
== END 2022-04-09 17:06 | DRG 193 ==
LOC: ED 11:28 → MED SURG 14:20 → OBSVTOIN 04-06 08:45
PROVIDERS: ADMIT Family Medicine; ATTEND Family Medicine
DX: J18.9 Pneumonia, unspecified organism (principal); J96.90 Respiratory failure, unspecified, unspecified whether with hypoxia or hypercapnia; D72.89 Other specified disorders of white blood cells; D72.829 Elevated white blood cell count, unspecified; G80.9 Cerebral palsy, unspecified; Z99.81 Dependence on supplemental oxygen; Z79.899 Other long term (current) drug therapy; Z20.828 Contact with and (suspected) exposure to other viral communicable diseases; M25.552 Pain in left hip
CPT/HCPCS: 0241U; 36000; 36415; 71045; 73502; 74230; 80048; 80053; 83605; 83735; 83880; 84145; 84484; 85025; 85027; 87040; 92611; 93005; 93041; 93268; 94640; 94760; 96365; 96374; 96375; 97161; 99285; G0378; J1956; J2270; J2405; J2930; A9270-GY

== ENCOUNTER 2022-06-08 18:34 | Inpatient (IN) | payer MEDICARE ==
[2022-06-08 19:28] LABS: A-aADO2 131; ABG HEMOGLOBIN 12.2; ABG POTASSIUM 3.1 (3.5-5.1); ARTERIAL BLD GAS O2 SATURATION 99.6 % (95-100); ARTERIAL BLOOD GAS BASE EXCESS 6.6 (-2.0-2.0); ARTERIAL BLOOD GAS FIO2 36 %; ARTERIAL BLOOD GAS PCO2 32 mmHg (35-45); ARTERIAL BLOOD GAS PO2 86 mmHg (75-100); CARBOXYHEMOGLOBIN 2.9 % THgb (0.0-6.9); HCO3- 28.7 (22-28); HGB O2 SAT 95.7 g/dF (94-100); Methhemoglobin 0.9 % (1.4-1.5)
[2022-06-08 19:29] LABS: ABG SITE LEFT RADIAL; ARTERIAL BLOOD GAS pH 7.56 (7.35-7.45)
--- NOTE | 2022-06-08 19:45 | ERPHSYRPT ---
- History of Present Illness Time Seen by Provider: 06/08/22 19:40 Source: patient Exam Limitations: no limitations Patient Subjective Stated Complaint: Pt lives at [facility] and has been SOB all day and was placed on oxygen today but still continued to decrease Triage Nursing Assessment: Pt brought to the ER by EMS, hypoxic, hypotensive, rates pain as 8/10, pain to the left thigh, food with thickened consitency due to her cerebal palsy, cough, is not normally on oxygen Physician History: Patient is an 82-year-old female presents to our ED from [facility] via EMS for evaluation of progressive shortness of breath. Patient states that symptoms have been progressive. Patient was [facility] at the [facility] but in spite of the oxygen patient continued to feel short of breath. January burrell received a DuoNeb and Solu-Medrol in route via EMS. Upon arrival patient was hypoxic. Blood pressure was low. Blood pressure currently however is 111/44. Patient appears to be mentating well. No associated chest pain. No nausea vomiting or diaphoresis. Patient also complains of pain to her left thigh. Pain rated 8 out of 10. Patient denies trauma. Patient states this left thigh pain started today. No back pain. No change in bowel bladder function. No saddle anesthesia. No lower extremity weakness. Patient voices no other complaints or concerns at this time. Portions of this note were created with voice recognition technology. There may be grammatical, spelling, punctuation or sound alike errors Timing/Duration: today Activities at Onset: none Severity of Dyspnea-Max: moderate Severity of Dyspnea-Current: mild Possible Cause: no prior episodes Modifying Factors: Improves With: albuterol nebulizer, oxygen Associated Symptoms: cough, No chest pain/discomfort, No edema Allergies/Adverse Reactions: No Known Drug Allergies Allergy (Verified 06/08/22 19:16) Home Medications: Acetaminophen 325 mg [Tylenol 325 mg] 325 mg PO Q4HPRN PRN 04/05/22 [History] Albuterol Sulfate [Albuterol Sulfate Hfa] 2 puff IH Q6HPRN PRN 04/05/22 [History] Budesonide/Formoterol Fumarate [Budesonide-Formoterol 160-4.5] 2 puff IH BID 04/05/22 [History] Calcium Carbonate [Calcium] 1,000 mg PO DAILY 04/05/22 [History] Diclofenac Sodium [Voltaren Arthritis Pain] 1 gm TOP Q6HPRN PRN 04/05/22 [History] Guaifenesin/Dextromethorphan [Guaifenesin-Dm 100-10 mg/5 ml] 10 ml PO Q6HPRN PRN 04/05/22 [History] Hydrocortisone 1% Cream [Cortisone 1% Cream] 1 gm TP Q8HPRN PRN 04/05/22 [History] Hypromellose [Tears Lubricant Eye Drop] 15 ml OP TID 04/05/22 [History] Montelukast Sodium 10 mg [Singulair 10 MG] 10 mg PO HS 04/05/22 [History] Ondansetron ODT 4 MG [Zofran Odt 4 mg] 4 mg PO Q6HPRN PRN 04/05/22 [History] hydroCHLOROthiazide [Hydrochlorothiazide] 25 mg PO UD 04/05/22 [History] polyethylene glycoL 3350 [Polyethylene Glycol 3350] 17 gm PO DAILY PRN PRN 04/05/22 [History] Loratadine 10 mg [Claritin 10 mg] 10 mg PO DAILY 06/08/22 [History] Pantoprazole 20 mg [Protonix 20MG Tablet] 20 mg PO DAILY 06/08/22 [History] Hx Tetanus, Diphtheria Vaccination/Date Given: Yes Hx Influenza Vaccination/Date Given: Yes Hx Pneumococcal Vaccination/Date Given: Yes Travel Risk - International Travel Have you traveled outside of the country in past 3 weeks: No - Coronavirus Screening Are you exhibiting any of the following symptoms?: Yes Symptoms: Shortness of Breath - Vaccine Status Have you recieved a Covid-19 vaccination: Yes Rn Oncology: Unknown - Vaccination Dates Dates if Unknown: ? - Review of Systems Constitutional: No Symptoms, No Fever, No Chills Eyes: No Symptoms Ears, Nose, & Throat: No Symptoms Respiratory: No Symptoms, No Cough, No Dyspnea Cardiac: No Symptoms, No Chest Pain, No Edema, No Syncope Abdominal/Gastrointestinal: No Symptoms, No Abdominal Pain, No Nausea, No Vomiting, No Diarrhea Genitourinary Symptoms: No Symptoms, No Dysuria Musculoskeletal: No Symptoms, No Back Pain, No Neck Pain Skin: No Symptoms, No Rash Neurological: No Symptoms, No Dizziness, No Focal Weakness, No Sensory Changes Psychological: No Symptoms Endocrine: No Symptoms Hematologic/Lymphatic: No Symptoms Immunological/Allergic: No Symptoms All Other Systems: Reviewed and Negative - Past Medical History Pertinent Past Medical History: Yes Neurological History: Other Cardiac History: Peripheral Vascular Disease Respiratory History: Pneumonia, Other Musculoskeletal History: Other GI Medical History: GERD Other Medical History: Hemorrhoids, Dysphagia, Seasonal Allergies, Age-related physical debility, Cerebral Palsy, Muscle Weakness, Airway Disease, Atelectasis, contracture requiring splint use to hands at bedtime - Past Surgical History Past Surgical History: Yes Musculoskeletal: Other Other Surgical History: Left hip fracture repair, surgeries as a child related to CP (sister and patient are unaware of the specific names of surgies). - Social History Smoking Status: Never smoker Exposure to second hand smoke: No Drug Use: none Patient Lives Alone: No ([facility]) - Nursing Vital Signs Nursing Vital Signs: Initial Vital Signs Temperature 98.3 F 06/08/22 18:38 Pulse Rate 110 H 06/08/22 18:38 Respiratory Rate 21 06/08/22 18:38 Blood Pressure 107/51 06/08/22 18:38 O2 Sat by Pulse Oximetry 91 L 06/08/22 18:38 Pain Scale Pain Intensity 8 - Physical Exam General Appearance: no apparent distress, alert Eye Exam: PERRL/EOMI, eyes nml inspection Ears, Nose, Throat Exam: hearing grossly normal, normal ENT inspection, normal pharynx Neck Exam: normal inspection, supple, full range of motion Respiratory Exam: respiratory distress, diminished breath sounds, accessory muscle use, rhonchi, wheezing Cardiovascular/Chest Exam: normal heart sounds, regular rate/rhythm Abdominal/Gastrointestinal Exam: soft, normal bowel sounds, No tenderness, No distention, No mass, No guarding Extremity Exam: non-tender, normal range of motion, normal inspection (Tenderness palpation proximal aspect left thigh and hip), no calf tenderness, no pedal edema, No pedal edema, No swelling, No isabela's sign Peripheral Pulses Exam: dorsalis-pedis (R): 2+, dorsalis-pedis (L): 2+ Neurologic Exam: alert, oriented x 3, cooperative, paper tester II-XII nml as tested, sensation nml, No motor deficits Skin Exam: normal color, warm, No dry Lymphatic Exam: No adenopathy SpO2 Interpretation: normal SpO2: 92 O2 Delivery: Nasal Cannula - Course Nursing assessment & vital signs reviewed: Yes EKG Interpreted by Me: RATE (111), Sinus Rhythm, NORMAL AXIS, NORMAL INTERVALS - Radiology Exams Chest X-ray Interpretation: Interpreted by me (Bibasilar atelectasis otherwise unchanged from previous) Pelvis X-ray Interpretation: Interpreted by me (Osteopenia, degenerative changes. No fracture dislocations.) Femur X-ray Interpretation: Interpreted by me (Osteopenia, degenerative changes. No fractures or dislocations.) Ordered Tests: Active Orders 24 hr Category Date Time Status Family Day Care Worker STAT Care 06/08/22 18:49 Active EKG-ER Only STAT Care 06/08/22 18:48 Active IV Insertion STAT Care 06/08/22 18:48 Active Pulse Oximetry (ED) STAT Care 06/08/22 18:48 Active Telemetry q4h Care 06/08/22 20:51 Active CHEST 1 VIEW (PORTABLE) Stat Exams 06/08/22 18:48 Taken FEMUR Stat Exams 06/08/22 21:54 Taken PELVIS (1 OR 2 VIEWS) Stat Exams 06/08/22 21:54 Taken ARTERIAL BLOOD GASES Stat Lab 06/08/22 19:25 Completed BLOOD CULTURE Stat Lab 06/08/22 19:20 Received CBC W DIFF Stat Lab 06/08/22 19:45 Completed CMP Stat Lab 06/08/22 19:45 Completed D-DIMER QUANTITATIVE Stat Lab 06/08/22 19:45 Completed Lactic Acid Stat Lab 06/08/22 19:25 Completed MAGNESIUM Stat Lab 06/08/22 19:45 Completed Manual Differential NC Stat Lab 06/08/22 19:45 Completed NT PRO BNP Stat Lab 06/08/22 19:45 Completed TROPONIN Q4H Lab 06/08/22 19:45 Completed TROPONIN Q4H Lab 06/08/22 23:00 Ordered TROPONIN Q4H Lab 06/09/22 03:00 Ordered Transfer Order Routine Transfer 06/08/22 Ordered Medication Summary Generic Name Dose Route Start Last Admin Trade Name Freq PRN Reason Stop Dose Admin Magnesium Sulfate/Dextrose 100 mls @ 100 mls/hr 06/08/22 21:00 06/08/22 22:13 Magnesium 1 Gm / 100 Ml D5w IV 06/08/22 22:59 100 mls/hr Q1H NILTON Administration Potassium Chloride 20 meq in 100 mls @ 50 mls/hr 06/08/22 21:00 06/08/22 21:33 Potassium Chloride 20 Meq In Water 100ml IV 06/09/22 00:59 50 mls/hr Q2H NILTON Administration Discontinued Medications Generic Name Dose Route Start Last Admin Trade Name Janell PRN Reason Stop Dose Admin Azithromycin 500 mg in 250 mls @ 250 mls/hr 06/08/22 20:44 06/08/22 21:46 Zithromax 500 Mg/ 250 Ml Nacl Premix IV 06/08/22 21:43 250 mls/hr STAT STA 250 mls/hr Administration Ceftriaxone Sodium/Dextrose 2 g in 50 mls @ 100 mls/hr 06/08/22 20:44 06/08/22 21:49 Rocephin 2 Gm-D5w 50ml Bag IV 06/08/22 21:13 Infused STAT STA Infusion Ceftriaxone Sodium/Dextrose Confirm 06/08/22 21:12 Rocephin 2 Gm-D5w 50ml Bag Administered 06/08/22 21:13 Dose 2 g in 50 mls @ ud IV .STK-MED ONE Azithromycin Confirm 06/08/22 21:45 Zithromax 500 Mg/ 250 Ml Nacl Premix Administered 06/08/22 21:46 Dose 500 mg in 250 mls @ ud IV .STK-MED ONE Lab/Rad Data: Laboratory Result Diagrams 06/08/22 19:45 06/08/22 19:45 Laboratory Results 06/08/22 06/08/22 06/08/22 Range/Units 19:45 19:45 19:45 WBC (4.0-10.5) x10^3/uL RBC (4.1-5.4) x10^6/uL Hgb (12.0-16.0) g/dL Hct (35-47) % MCV (78-100) fL MCH (26-32) pg MCHC (32-36) g/dL RDW (11.5-14.0) % Plt Count (150-450) x10^3/uL MPV (7.5-11.0) fL Segmented Neutrophils (36.0-66.0) % Band Neutrophils (0.0-2.0) % Lymphocytes (Manual) (24-44) % Monocytes (Manual) (0.0-12.0) % Platelet Estimate (NORMAL) RBC Morphology D-Dimer 0.54 H (0.0-0.50) mg/L Puncture Site pCO2 (35-45) mmHg pO2 (75-100) mmHg Base Excess (-2.0-2.0) O2 Saturation (94-100) g/dF ABG pH (7.35-7.45) ABG HCO3 (22-28) ABG O2 Sat (Measured) (95-100) % Jalen Test A-a Gradient a/A Ratio Hemoglobin Carboxyhemoglobin (0.0-6.9) % THgb Methemoglobin (1.4-1.5) % Potassium 3.1 L (3.5-5.1) Temperature C POC O2 Flow Rate % Sodium 132 L (137-145) mmol/L Chloride 96 L (98-107) mmol/L Carbon Dioxide 29 (22-30) mmol/L Anion Gap 10.2 (5-15) MEQ/L BUN 14 (7-17) mg/dL Creatinine 0.39 L (0.52-1.04) mg/dL Estimated GFR > 60.0 ML/MIN Glucose 147 H (74-106) mg/dL Lactic Acid (0.4-2.0) Calcium 8.7 (8.4-10.2) mg/dL Magnesium 1.9 (1.6-2.3) mg/dL Total Bilirubin 0.90 (0.2-1.3) mg/dL AST 19 (14-36) U/L ALT 15 (0-35) U/L Alkaline Phosphatase 117 (38-126) U/L Troponin I < 0.012 (0.000-0.034) ng/mL NT-Pro-B Natriuret Pep 530 (0-1800) pg/mL Serum Total Protein 7.3 (6.3-8.2) g/dL Albumin 3.8 (3.5-5.0) g/dL Influenza Type A Ag (NEGATIVE) Influenza Type B Ag (NEGATIVE) RSV (PCR) (Negative) SARS-CoV-2 (PCR) (NEGATIVE) 06/08/22 06/08/22 06/08/22 Range/Units 19:45 19:25 19:20 WBC 21.6 H (4.0-10.5) x10^3/uL RBC 3.87 L (4.1-5.4) x10^6/uL Hgb 11.4 L (12.0-16.0) g/dL Hct 36.1 (35-47) % MCV 93.3 (78-100) fL MCH 29.5 (26-32) pg MCHC 31.6 L (32-36) g/dL RDW 13.7 (11.5-14.0) % Plt Count 275 (150-450) x10^3/uL MPV 10.6 (7.5-11.0) fL Segmented Neutrophils 87 H (36.0-66.0) % Band Neutrophils 6 H (0.0-2.0) % Lymphocytes (Manual) 4 L (24-44) % Monocytes (Manual) 3 (0.0-12.0) % Platelet Estimate NORMAL (NORMAL) RBC Morphology NORMAL D-Dimer (0.0-0.50) mg/L Puncture Site LEFT RADIAL pCO2 32 L (35-45) mmHg pO2 86 (75-100) mmHg Base Excess 6.6 H (-2.0-2.0) O2 Saturation 95.7 (94-100) g/dF ABG pH 7.56 H* (7.35-7.45) ABG HCO3 28.7 H (22-28) ABG O2 Sat (Measured) 99.6 (95-100) % Jalen Test NOT APPLICABLE A-a Gradient 131 a/A Ratio 0.40 Hemoglobin 12.2 Carboxyhemoglobin 2.9 (0.0-6.9) % THgb Methemoglobin 0.9 L (1.4-1.5) % Potassium 3.1 L (3.5-5.1) Temperature 37.0 C POC O2 Flow Rate 36 % Sodium (137-145) mmol/L Chloride (98-107) mmol/L Carbon Dioxide (22-30) mmol/L Anion Gap (5-15) MEQ/L BUN (7-17) mg/dL Creatinine (0.52-1.04) mg/dL Estimated GFR ML/MIN Glucose (74-106) mg/dL Lactic Acid 1.0 (0.4-2.0) Calcium (8.4-10.2) mg/dL Magnesium (1.6-2.3) mg/dL Total Bilirubin (0.2-1.3) mg/dL AST (14-36) U/L ALT (0-35) U/L Alkaline Phosphatase (38-126) U/L Troponin I (0.000-0.034) ng/mL NT-Pro-B Natriuret Pep (0-1800) pg/mL Serum Total Protein (6.3-8.2) g/dL Albumin (3.5-5.0) g/dL Influenza Type A Ag NEGATIVE (NEGATIVE) Influenza Type B Ag NEGATIVE (NEGATIVE) RSV (PCR) NEGATIVE (Negative) SARS-CoV-2 (PCR) NEGATIVE (NEGATIVE) - Progress Progress: improved Air Movement: good Progress Note: I interpreted the EKG. I interpreted the chest x-ray Age corrected D-dimer negative. covid negative 06/08/22 21:[address] Velez who excepts admission to observation. Plan of care discussed with patient. She agrees to admission at [facility] for further evaluation and treatment. 06/08/22 21:52 Patient is an 82-year-old female presents emergency department via EMS for evaluation of shortness of breath. Patient treated for COPD exacerbation in route. Patient received Solu-Medrol and nebulizer treatment. This significantly improved patient's symptoms. Patient was initially hypoxic and hypotensive. Hypoxia significantly improved after breathing treatment. Patient breathing easier. Patient not ready for discharge. Will admit for further evaluation and treatment. 06/08/22 22:10 Patient is an 82-year-old female [facility]. Patient complained of progressive shortness of breath despite of nasal cannula oxygen. Patient's complaint was acute on chronic. Complaint was moderate to severe in intensity. Complexity of complaint was moderate. Patient's comorbidities likely contributing to her symptoms. Testing ordered include chest x-ray, ABG, CBC, CMP, COVID, D-dimer, lactic acid, proBNP and troponin. Results of the studies were for medical decision making. Work-up reveals hypoxia, shortness of breath, leukocytosis, hyponatremia hypokalemia. Patient treated with magnesium potassium and antibiotics. Patient received Solu-Medrol in route via EMS. Patient also received a nebulizer treatment via EMS. Patient symptoms significantly improved. Level of EM service provided was moderate to high. Complexity of problem is moderate. Amount and complexity of data reviewed and analyzed was moderate. Risk of complications, morbidity/mortality was moderate. No critical care time. EMS and patient both contributed to the history of present illness. Blood Culture(s) Obtained: Yes Antibiotics given: Yes Discussed with : Al Will see patient in: hospital (observation) Counseled pt/family regarding: lab results, diagnosis, rad results - Departure Departure Disposition: Observation Clinical Impression: Hypoxia, Shortness of breath, Leukocytosis, Hyponatremia, Hypokalemia, Left hip pain Condition: Stable Critical Care Time: No Referrals: GEOFF CLAROS MD [Primary Care Provider] - Follow up/PCP as directed
[2022-06-08 19:56] LABS: Hematocrit 36.1 % (35-47); Hemoglobin 11.4 g/dL (12.0-16.0); Mean Cell Volume 93.3 fL (78-100); Mean Corpuscular Hemoglobin 29.5 pg (26-32); Mean Corpuscular Hgb Concent. 31.6 g/dL (32-36); Mean Platelet Volume 10.6 fL (7.5-11.0); Platelet Count 275 x10^3/uL (150-450); Red Blood Count 3.87 x10^6/uL (4.1-5.4); Red Cell Distribution Width 13.7 % (11.5-14.0); White Blood Count 21.6 x10^3/uL (4.0-10.5)
[2022-06-08 20:14] LABS: INFLUENZA A NEGATIVE (NEGATIVE); INFLUENZA B NEGATIVE (NEGATIVE); RESPIRATORY SYNCTIAL VIRUS NEGATIVE (Negative); SARS-CoV-2 Xpert Express NEGATIVE (NEGATIVE)
[2022-06-08 20:40] LABS: ALBUMIN 3.8 g/dL (3.5-5.0); ALKALINE PHOSPHATASE 117 U/L (38-126); ANION GAP 10.2 MEQ/L (5-15); BLOOD UREA NITROGEN 14 mg/dL (7-17); CHLORIDE 96 mmol/L (98-107); Calcium 8.7 mg/dL (8.4-10.2); Carbon Dioxide 29 mmol/L (22-30); Creatinine 1 0.39 mg/dL (0.52-1.04); EST GLOMERULAR FILTRATION RATE > 60.0 ML/MIN; Glucose 147 mg/dL (74-106); MAGNESIUM 1.9 mg/dL (1.6-2.3); NT PRO BNP 530 pg/mL (0-1800); Potassium 3.1 mmol/L (3.5-5.1); SGOT/AST 19 U/L (14-36); SGPT/ALT 15 U/L (0-35); SODIUM 132 mmol/L (137-145); Total Protein 7.3 g/dL (6.3-8.2)
[2022-06-08] MEDS ORDERED: ROCEPHIN 2 Gm-D5w 50ML BAG** 2 G/50 ML IVPB IV STA (20:44)
[2022-06-08] MEDS ORDERED: Zithromax 500 MG/ 250 ML NaCl Premix 500 MG/250 ML IVPB IV STA (20:44)
[2022-06-08] MEDS ORDERED: ROCEPHIN 2 Gm-D5w 50ML BAG** 2 G/50 ML IVPB IV ONE (21:12)
[2022-06-08] MEDS ORDERED: Magnesium 1 Gm / 100 Ml D5W*** 100 ML IV ONE ×2 (21:31→22:12)
[2022-06-08] MEDS: Magnesium 1 Gm / 100 Ml D5W*** 100 ML IV SCH ×2 (21:32→22:13)
[2022-06-08] MEDS: POTASSIUM CHLORIDE 20 mEq IN WATER 100ML 20 MEQ/100 ML BAG IV SCH (21:33)
[2022-06-08] MEDS ORDERED: Zithromax 500 MG/ 250 ML NaCl Premix 500 MG/250 ML IVPB IV ONE (21:45)
[2022-06-08 22:01] LABS: BAND 6 % (0.0-2.0); Lymphocytes 4 % (24-44); Monocyte 3 % (0.0-12.0); Total Cells Counted 100
[2022-06-08 22:02] LABS: Platelet Estimate NORMAL (NORMAL)
[2022-06-08] MEDS ORDERED: TORAdol 30 mg Injection IV ONE (22:36)
[2022-06-08] MEDS ORDERED: TORAdol 30 mg Injection ONE (22:49)
[2022-06-09] MEDS: POTASSIUM CHLORIDE 20 mEq IN WATER 100ML 20 MEQ/100 ML BAG IV SCH (00:04)
[2022-06-09] MEDS: PROVENTIL 2.5 MG/3 ML NEB IH SCH ×7 (00:15→22:31)
[2022-06-09] MEDS ORDERED: Sodium Chloride 0.9% 500 ML 500 ML IV ONE (00:31)
[2022-06-09] MEDS ORDERED: solu-MEDROL ONE ×2 (01:32→06:27)
[2022-06-09] MEDS: solu-MEDROL 60 MG, Sterile H2O 10 ml 2 ML IV SCH ×8 (01:51→18:38)
[2022-06-09] MEDS ORDERED: Sodium Chloride 0.9% 500 ML 500 ML IV SCH (03:00)
[2022-06-09 04:41] LABS: Hematocrit 38.4 % (35-47); Hemoglobin 11.3 g/dL (12.0-16.0); Mean Cell Volume 99.5 fL (78-100); Mean Corpuscular Hemoglobin 29.3 pg (26-32); Mean Corpuscular Hgb Concent. 29.4 g/dL (32-36); Platelet Count 137 x10^3/uL (150-450); Red Blood Count 3.86 x10^6/uL (4.1-5.4); Red Cell Distribution Width 13.6 % (11.5-14.0); White Blood Count 20.9 x10^3/uL (4.0-10.5)
[2022-06-09 05:01] LABS: ALBUMIN 3.2 g/dL (3.5-5.0); ALKALINE PHOSPHATASE 100 U/L (38-126); BLOOD UREA NITROGEN 14 mg/dL (7-17); CHLORIDE 101 mmol/L (98-107); Calcium 8.5 mg/dL (8.4-10.2); Carbon Dioxide 26 mmol/L (22-30); Creatinine 1 0.39 mg/dL (0.52-1.04); EST GLOMERULAR FILTRATION RATE > 60.0 ML/MIN; Glucose 213 mg/dL (74-106); Potassium 3.9 mmol/L (3.5-5.1); SGOT/AST 19 U/L (14-36); SGPT/ALT 15 U/L (0-35); SODIUM 133 mmol/L (137-145); Total Protein 6.2 g/dL (6.3-8.2)
[2022-06-09 07:24] LABS: Slide Review YES
[2022-06-09] MEDS: Advair Hfa 115/21 Common canister IH SCH ×2 (07:26→19:18)
--- NOTE | 2022-06-09 08:37 | XRAY ---
Indication: Short of breath. Comparison: April 09, 2022 Portable chest again demonstrates mild bibasilar infiltrates/atelectasis/effusions, unchanged on the right and improved on the left. Remaining heart and upper lungs unremarkable. Bony thorax intact again with osteopenia and dextroscoliosis.
--- NOTE | 2022-06-09 08:39 | XRAY ---
Indication: Left leg pain following fall. Comparison: None Single AP pelvis demonstrates osteopenia, lower lumbar degenerative spondylosis/scoliosis, incompletely visualized proximal right femur intramedullary temitope/screws, and 1.8 cm calcified uterine fibroid. No other bony, articular, or soft tissue abnormalities.
--- NOTE | 2022-06-09 08:39 | XRAY ---
Indication: Pain following fall. Comparison: None 2 view left femur demonstrates osteopenia, incompletely visualized proximal right femur intramedullary temitope/screws, and 1.8 cm calcified uterine fibroid. No other bony, articular, or soft tissue abnormalities.
[2022-06-09] MEDS: ROCEPHIN 1 Gm-D5w 50 ml Bag** 1 G/50 ML IVPB IV SCH ×2 (11:07→22:42)
--- NOTE | 2022-06-09 11:46 | PCM.HP ---
History of Present Illness - Chief Complaint Chief Complaint: Hypoxia, SOB,hyponatrimia, hypokalemia History of Present Illness: is a 82 year old female pt of Dr. Garcia who lives at [facility] who was brought to ER with SOB and admitted for COPD exacerbation. She was given antibiocs and IV steroids. Placed on 4L NC. WBC 21.6; CXR nonacute. Pt has hx COPD, PVD, GERD, and cerebral palsy. Denies smoking hx. Pt is not a good historian; not oriented to time, and she will answer questions but the content of the answers is suspect. She tells me she does not have COPD, but she clearly has medications that treat COPD. She does c/o LUE pain since yesterday. She c/o proximal anterior thigh pain on the L with some radiation into the leg. She is grabbing at the leg at the beginning of our interview. - Review of Systems All Other Systems: Unable due to dementia Medications & Allergies Home Medications: Home Medication List Acetaminophen 325 mg [Tylenol 325 mg] 325 mg PO Q4HPRN PRN 04/05/22 [History Confirmed 06/08/22] Albuterol Sulfate [Albuterol Sulfate Hfa] 2 puff IH Q6HPRN PRN 04/05/22 [History Confirmed 06/08/22] Budesonide/Formoterol Fumarate [Budesonide-Formoterol 160-4.5] 2 puff IH BID 04/05/22 [History Confirmed 06/08/22] Calcium Carbonate [Calcium] 1,000 mg PO DAILY 04/05/22 [History Confirmed 06/08/22] Diclofenac Sodium [Voltaren Arthritis Pain] 1 gm TOP Q6HPRN PRN 04/05/22 [History Confirmed 06/08/22] Guaifenesin/Dextromethorphan [Guaifenesin-Dm 100-10 mg/5 ml] 10 ml PO Q6HPRN PRN 04/05/22 [History Confirmed 06/08/22] Hydrocortisone 1% Cream [Cortisone 1% Cream] 1 gm TP Q8HPRN PRN 04/05/22 [History Confirmed 06/08/22] Hypromellose [Tears Lubricant Eye Drop] 15 ml OP TID 04/05/22 [History Confirmed 06/08/22] Montelukast Sodium 10 mg [Singulair 10 MG] 10 mg PO HS 04/05/22 [History Confirmed 06/08/22] Ondansetron ODT 4 MG [Zofran Odt 4 mg] 4 mg PO Q6HPRN PRN 04/05/22 [History Confirmed 06/08/22] hydroCHLOROthiazide [Hydrochlorothiazide] 25 mg PO UD 04/05/22 [History Confirmed 06/08/22] polyethylene glycoL 3350 [Polyethylene Glycol 3350] 17 gm PO DAILY PRN PRN 04/05/22 [History Confirmed 06/08/22] Loratadine 10 mg [Claritin 10 mg] 10 mg PO DAILY 06/08/22 [History Confirmed 06/08/22] Pantoprazole 20 mg [Protonix 20MG Tablet] 20 mg PO DAILY 06/08/22 [History Confirmed 06/08/22] Allergies/Adverse Reactions: Allergies Allergy/AdvReac Type Severity Reaction Status Date / Time No Known Drug Allergies Allergy Verified 06/08/22 19:16 - Past Medical History Past Medical History: Yes Neurological History: Other ENT History: No Pertinent History Cardiac History: Peripheral Vascular Disease Respiratory History: COPD, Pneumonia, Other Endocrine Medical History: No Pertinent History Musculoskelatal History: Arthritis, Other GI Medical History: GERD Comment: Hemorrhoids, Dysphagia, Seasonal Allergies, Age-related physical debility, Cerebral Palsy, Muscle Weakness, Airway Disease, Atelectasis, contracture requiring splint use to hands at bedtime - Female History Are you now?: No - Past Surgical History Past Surgical History: Yes Musculskeletal Surgical Hx: Other Other Surgical History: Left hip fracture repair, surgeries as a child related to CP (sister and patient are unaware of the specific names of surgies). - Social History Smoking Status: Unknown if ever smoked Exposure to second hand smoke: No Alcohol: None Drug Use: none - Physical Exam Vital Signs: Vital Signs - 24 hr Temp Pulse Resp BP Pulse Ox 06/09/22 11:29 77 16 95 06/09/22 07:31 78 16 92 L 06/09/22 07:04 97.9 F 85 16 111/59 92 L 06/09/22 05:09 97.4 F 65 22 131/61 95 06/09/22 03:26 60 20 93 L 06/09/22 00:18 97.8 F 92 H 18 111/55 92 L 06/09/22 00:15 86 20 91 L 06/08/22 23:55 97.4 F 94 H 32 H 121/65 90 L 06/08/22 22:34 92 L 06/08/22 22:06 100 H 20 101/50 91 L 06/08/22 19:51 110 H 27 H 111/44 92 L 06/08/22 19:13 92 L 06/08/22 18:38 98.3 F 110 H 21 107/51 90 L General Appearance: no apparent distress, alert Neurologic Exam: cooperative, disoriented Eye Exam: eyes nml inspection Ears, Nose, Throat Exam: moist mucous membranes Neck Exam: normal inspection, No lymphadenopathy, No subcutaneous emphysema, No thyromegaly Respiratory Exam: diminished breath sounds (fair AE), prolonged expirations, wheezing (scattered), No crackles/rales, No rhonchi Cardiovascular Exam: regular rate/rhythm, normal heart sounds, No murmur Gastrointestinal/Abdomen Exam: soft, normal bowel sounds, No tenderness, No distention, No mass, No guarding, No rebound Back Exam: normal inspection, No rash Extremity Exam: normal inspection, other (LLE proximal anterior without rash or erythema; nttp), No pedal edema, No swelling Results - Labs Lab/Micro Results: Lab Results-Last 24 Hours 06/08/22 06/08/22 06/08/22 Range/Units 19:20 19:25 19:45 WBC 21.6 H (4.0-10.5) x10^3/uL RBC 3.87 L (4.1-5.4) x10^6/uL Hgb 11.4 L (12.0-16.0) g/dL Hct 36.1 (35-47) % MCV 93.3 (78-100) fL MCH 29.5 (26-32) pg MCHC 31.6 L (32-36) g/dL RDW 13.7 (11.5-14.0) % Plt Count 275 (150-450) x10^3/uL MPV 10.6 (7.5-11.0) fL Segmented Neutrophils 87 H (36.0-66.0) % Band Neutrophils 6 H (0.0-2.0) % Lymphocytes (Manual) 4 L (24-44) % Monocytes (Manual) 3 (0.0-12.0) % Platelet Estimate NORMAL (NORMAL) RBC Morphology NORMAL D-Dimer (0.0-0.50) mg/L Puncture Site LEFT RADIAL pCO2 32 L (35-45) mmHg pO2 86 (75-100) mmHg Base Excess 6.6 H (-2.0-2.0) O2 Saturation 95.7 (94-100) g/dF ABG pH 7.56 H* (7.35-7.45) ABG HCO3 28.7 H (22-28) ABG O2 Sat (Measured) 99.6 (95-100) % Jalen Test NOT APPLICABLE A-a Gradient 131 a/A Ratio 0.40 Hemoglobin 12.2 Carboxyhemoglobin 2.9 (0.0-6.9) % THgb Methemoglobin 0.9 L (1.4-1.5) % Potassium 3.1 L (3.5-5.1) Temperature 37.0 C POC O2 Flow Rate 36 % Sodium (137-145) mmol/L Chloride (98-107) mmol/L Carbon Dioxide (22-30) mmol/L Anion Gap (5-15) MEQ/L BUN (7-17) mg/dL Creatinine (0.52-1.04) mg/dL Estimated GFR ML/MIN Glucose (74-106) mg/dL Lactic Acid 1.0 (0.4-2.0) Calcium (8.4-10.2) mg/dL Magnesium (1.6-2.3) mg/dL Total Bilirubin (0.2-1.3) mg/dL AST (14-36) U/L ALT (0-35) U/L Alkaline Phosphatase (38-126) U/L Troponin I (0.000-0.034) ng/mL NT-Pro-B Natriuret Pep (0-1800) pg/mL Serum Total Protein (6.3-8.2) g/dL Albumin (3.5-5.0) g/dL Influenza Type A Ag NEGATIVE (NEGATIVE) Influenza Type B Ag NEGATIVE (NEGATIVE) RSV (PCR) NEGATIVE (Negative) SARS-CoV-2 (PCR) NEGATIVE (NEGATIVE) Slides for Path Review 06/08/22 06/08/22 06/08/22 Range/Units 19:45 19:45 19:45 WBC (4.0-10.5) x10^3/uL RBC (4.1-5.4) x10^6/uL Hgb (12.0-16.0) g/dL Hct (35-47) % MCV (78-100) fL MCH (26-32) pg MCHC (32-36) g/dL RDW (11.5-14.0) % Plt Count (150-450) x10^3/uL MPV (7.5-11.0) fL Segmented Neutrophils (36.0-66.0) % Band Neutrophils (0.0-2.0) % Lymphocytes (Manual) (24-44) % Monocytes (Manual) (0.0-12.0) % Platelet Estimate (NORMAL) RBC Morphology D-Dimer 0.54 H (0.0-0.50) mg/L Puncture Site pCO2 (35-45) mmHg pO2 (75-100) mmHg Base Excess (-2.0-2.0) O2 Saturation (94-100) g/dF ABG pH (7.35-7.45) ABG HCO3 (22-28) ABG O2 Sat (Measured) (95-100) % Jalen Test A-a Gradient a/A Ratio Hemoglobin Carboxyhemoglobin (0.0-6.9) % THgb Methemoglobin (1.4-1.5) % Potassium 3.1 L (3.5-5.1) Temperature C POC O2 Flow Rate % Sodium 132 L (137-145) mmol/L Chloride 96 L (98-107) mmol/L Carbon Dioxide 29 (22-30) mmol/L Anion Gap 10.2 (5-15) MEQ/L BUN 14 (7-17) mg/dL Creatinine 0.39 L (0.52-1.04) mg/dL Estimated GFR > 60.0 ML/MIN Glucose 147 H (74-106) mg/dL Lactic Acid (0.4-2.0) Calcium 8.7 (8.4-10.2) mg/dL Magnesium 1.9 (1.6-2.3) mg/dL Total Bilirubin 0.90 (0.2-1.3) mg/dL AST 19 (14-36) U/L ALT 15 (0-35) U/L Alkaline Phosphatase 117 (38-126) U/L Troponin I < 0.012 (0.000-0.034) ng/mL NT-Pro-B Natriuret Pep 530 (0-1800) pg/mL Serum Total Protein 7.3 (6.3-8.2) g/dL Albumin 3.8 (3.5-5.0) g/dL Influenza Type A Ag (NEGATIVE) Influenza Type B Ag (NEGATIVE) RSV (PCR) (Negative) SARS-CoV-2 (PCR) (NEGATIVE) Slides for Path Review 06/08/22 06/09/22 06/09/22 Range/Units 22:50 04:17 04:17 WBC 20.9 H (4.0-10.5) x10^3/uL RBC 3.86 L (4.1-5.4) x10^6/uL Hgb 11.3 L (12.0-16.0) g/dL Hct 38.4 (35-47) % MCV 99.5 D (78-100) fL MCH 29.3 (26-32) pg MCHC 29.4 L (32-36) g/dL RDW 13.6 (11.5-14.0) % Plt Count 137 L D (150-450) x10^3/uL MPV 11.0 (7.5-11.0) fL Segmented Neutrophils (36.0-66.0) % Band Neutrophils (0.0-2.0) % Lymphocytes (Manual) (24-44) % Monocytes (Manual) (0.0-12.0) % Platelet Estimate (NORMAL) RBC Morphology D-Dimer (0.0-0.50) mg/L Puncture Site pCO2 (35-45) mmHg pO2 (75-100) mmHg Base Excess (-2.0-2.0) O2 Saturation (94-100) g/dF ABG pH (7.35-7.45) ABG HCO3 (22-28) ABG O2 Sat (Measured) (95-100) % Jalen Test A-a Gradient a/A Ratio Hemoglobin Carboxyhemoglobin (0.0-6.9) % THgb Methemoglobin (1.4-1.5) % Potassium (3.5-5.1) Temperature C POC O2 Flow Rate % Sodium (137-145) mmol/L Chloride (98-107) mmol/L Carbon Dioxide (22-30) mmol/L Anion Gap (5-15) MEQ/L BUN (7-17) mg/dL Creatinine (0.52-1.04) mg/dL Estimated GFR ML/MIN Glucose (74-106) mg/dL Lactic Acid (0.4-2.0) Calcium (8.4-10.2) mg/dL Magnesium (1.6-2.3) mg/dL Total Bilirubin (0.2-1.3) mg/dL AST (14-36) U/L ALT (0-35) U/L Alkaline Phosphatase (38-126) U/L Troponin I 0.013 < 0.012 (0.000-0.034) ng/mL NT-Pro-B Natriuret Pep (0-1800) pg/mL Serum Total Protein (6.3-8.2) g/dL Albumin (3.5-5.0) g/dL Influenza Type A Ag (NEGATIVE) Influenza Type B Ag (NEGATIVE) RSV (PCR) (Negative) SARS-CoV-2 (PCR) (NEGATIVE) Slides for Path Review YES 06/09/22 Range/Units 04:17 WBC (4.0-10.5) x10^3/uL RBC (4.1-5.4) x10^6/uL Hgb (12.0-16.0) g/dL Hct (35-47) % MCV (78-100) fL MCH (26-32) pg MCHC (32-36) g/dL RDW (11.5-14.0) % Plt Count (150-450) x10^3/uL MPV (7.5-11.0) fL Segmented Neutrophils (36.0-66.0) % Band Neutrophils (0.0-2.0) % Lymphocytes (Manual) (24-44) % Monocytes (Manual) (0.0-12.0) % Platelet Estimate (NORMAL) RBC Morphology D-Dimer (0.0-0.50) mg/L Puncture Site pCO2 (35-45) mmHg pO2 (75-100) mmHg Base Excess (-2.0-2.0) O2 Saturation (94-100) g/dF ABG pH (7.35-7.45) ABG HCO3 (22-28) ABG O2 Sat (Measured) (95-100) % Jalen Test A-a Gradient a/A Ratio Hemoglobin Carboxyhemoglobin (0.0-6.9) % THgb Methemoglobin (1.4-1.5) % Potassium 3.9 D (3.5-5.1) Temperature C POC O2 Flow Rate % Sodium 133 L (137-145) mmol/L Chloride 101 (98-107) mmol/L Carbon Dioxide 26 (22-30) mmol/L Anion Gap 10.0 (5-15) MEQ/L BUN 14 (7-17) mg/dL Creatinine 0.39 L (0.52-1.04) mg/dL Estimated GFR > 60.0 ML/MIN Glucose 213 H (74-106) mg/dL Lactic Acid (0.4-2.0) Calcium 8.5 (8.4-10.2) mg/dL Magnesium (1.6-2.3) mg/dL Total Bilirubin 0.40 (0.2-1.3) mg/dL AST 19 (14-36) U/L ALT 15 (0-35) U/L Alkaline Phosphatase 100 (38-126) U/L Troponin I (0.000-0.034) ng/mL NT-Pro-B Natriuret Pep (0-1800) pg/mL Serum Total Protein 6.2 L (6.3-8.2) g/dL Albumin 3.2 L (3.5-5.0) g/dL Influenza Type A Ag (NEGATIVE) Influenza Type B Ag (NEGATIVE) RSV (PCR) (Negative) SARS-CoV-2 (PCR) (NEGATIVE) Slides for Path Review - Radiology Impressions Radiology Exams & Impressions: Radiology Procedures Category Date Time Status CHEST 1 VIEW (PORTABLE) Stat Exams 06/08/22 18:48 Completed FEMUR Stat Exams 06/08/22 21:54 Completed PELVIS (1 OR 2 VIEWS) Stat Exams 06/08/22 21:54 Completed - Other Procedures and Tests Respiratory Therapy 06/09/22 01:38 Oxygen Nasal Cannula 4 lpm Respiratory Therapy Assessment DAILY Assessment/Plan (1) COPD exacerbation Current Visit: Yes Status: Acute Assessment & Plan: On rocephin and zithromax day #2. On IV solumedrol 60mg q6h. Code(s): J44.1 - CHRONIC OBSTRUCTIVE PULMONARY DISEASE W (ACUTE) EXACERBATION (2) Hypoxia Current Visit: Yes Status: Acute Assessment & Plan: ON 4L NC. Unsure her baseline. Code(s): R09.02 - HYPOXEMIA (3) Left hip pain Current Visit: Yes Status: Acute Assessment & Plan: XR of pelvis and femur are nonacute. Code(s): M25.552 - PAIN IN LEFT HIP (4) Leukocytosis Current Visit: Yes Status: Acute Qualifiers: Leukocytosis type: unspecified Qualified Code(s): D72.829 - Elevated white blood cell count, unspecified Assessment & Plan: WBC mildly decreased from admission. Code(s): D72.829 - ELEVATED WHITE BLOOD CELL COUNT, UNSPECIFIED (5) Cerebral palsy Current Visit: No Status: Chronic Qualifiers: Cerebral palsy type: unspecified type Qualified Code(s): G80.9 - Cerebral palsy, unspecified Code(s): G80.9 - CEREBRAL PALSY, UNSPECIFIED
[2022-06-09] MEDS ORDERED: DICLOFENAC SODIUM TP PRN (13:17)
[2022-06-09] MEDS ORDERED: ZOFRAN ODT 4 MG PO PRN (13:17)
[2022-06-09] MEDS ORDERED: Miralax Powder 17GM PACKET PO PRN (13:17)
[2022-06-09] MEDS ORDERED: VENTOLIN COMMON CANISTER IH PRN (13:17)
[2022-06-09] MEDS ORDERED: CORTISONE 1% CREAM TP PRN (13:17)
[2022-06-09] MEDS ORDERED: HYPROMELLOSE OP SCH (15:00)
[2022-06-09] MEDS: Artificial Tears 15 ML OP SCH ×2 (15:17→22:59)
[2022-06-09] MEDS: CLARITIN 10 MG PO SCH (15:17)
[2022-06-09] MEDS: Protonix 20MG Tablet PO SCH (15:17)
[2022-06-09] MEDS: Zithromax 500 MG/ 250 ML NaCl Premix 500 MG/250 ML IVPB IV SCH (22:24)
[2022-06-09] MEDS: Singulair 10 MG PO SCH (22:33)
[2022-06-10] MEDS: solu-MEDROL 60 MG, Sterile H2O 10 ml 2 ML IV SCH ×4 (00:55→05:46)
[2022-06-10] MEDS: Robitussin-Dm Syrup PO PRN ×3 (01:09→17:18)
[2022-06-10] MEDS: TYLENOL 325 MG PO PRN (05:09)
[2022-06-10] MEDS ORDERED: solu-MEDROL ONE (05:39)
[2022-06-10] MEDS: PROVENTIL 2.5 MG/3 ML NEB IH SCH ×4 (05:41→18:28)
[2022-06-10] MEDS: Advair Hfa 115/21 Common canister IH SCH ×2 (05:42→18:30)
[2022-06-10 07:38] LABS: Absolute Neutrophil Ct (ANC) 16.43 x10^3/uL (1.4-6.9); Basophil (Absolute #) 0.02 x10^3/uL (0-0.4); Eosinophil (Absolute #) 0 x10^3/uL (0-0.5); Hematocrit 32.4 % (35-47); Hemoglobin 10.4 g/dL (12.0-16.0); Lymphocyte (Absolute #) 0.82 x10^3/uL (1.0-4.6); Lymphocytes % 4.6 % (24.0-44.0); Mean Cell Volume 92.3 fL (78-100); Mean Corpuscular Hemoglobin 29.6 pg (26-32); Mean Corpuscular Hgb Concent. 32.1 g/dL (32-36); Mean Platelet Volume 10.8 fL (7.5-11.0); Monocyte (Absolute #) 0.27 x10^3/uL (0.0-1.3); Monocytes % 1.5 % (0.0-12.0); Neutrophil % 93.1 % (36.0-66.0); Platelet Count 317 x10^3/uL (150-450); Red Blood Count 3.51 x10^6/uL (4.1-5.4); White Blood Count 17.7 x10^3/uL (4.0-10.5)
[2022-06-10] MEDS: CLARITIN 10 MG PO SCH (08:30)
[2022-06-10] MEDS: Protonix 20MG Tablet PO SCH (08:31)
[2022-06-10] MEDS: hydroDIURIL 25 MG PO SCH (08:31)
[2022-06-10] MEDS: Artificial Tears 15 ML OP SCH ×3 (08:31→21:18)
[2022-06-10] MEDS: ROCEPHIN 1 Gm-D5w 50 ml Bag** 1 G/50 ML IVPB IV SCH (08:32)
[2022-06-10 09:39] LABS: ANION GAP 11.2 MEQ/L (5-15); BLOOD UREA NITROGEN 28 mg/dL (7-17); CHLORIDE 107 mmol/L (98-107); Calcium 8.6 mg/dL (8.4-10.2); Carbon Dioxide 27 mmol/L (22-30); Creatinine 1 0.46 mg/dL (0.52-1.04); EST GLOMERULAR FILTRATION RATE > 60.0 ML/MIN; Glucose 168 mg/dL (74-106); Potassium 3.5 mmol/L (3.5-5.1); SODIUM 141 mmol/L (137-145)
[2022-06-10] MEDS: DELTASONE 20 MG PO SCH (12:49)
--- NOTE | 2022-06-10 12:59 | PCM.NOTE ---
Date and Time: 06/10/22 1257 Subjective Assessment: Pt with more productive cough. reji po fine. On 4L nc - Review of Systems Respiratory: Cough Abdominal/Gastrointestinal: No Vomiting Objective Exam General Appearance: no apparent distress, alert Neurologic Exam: cooperative, normal mood/affect Skin Exam: normal color, warm, dry, No rash Eye Exam: eyes nml inspection Ears, Nose, Throat Exam: moist mucous membranes Neck Exam: normal inspection Respiratory Exam: diminished breath sounds (good air exchange), No crackles/rales, No rhonchi, No wheezing Cardiovascular Exam: regular rate/rhythm, normal heart sounds, No murmur Gastrointestinal/Abdomen Exam: soft, normal bowel sounds, No tenderness, No distention, No mass, No guarding, No rebound Extremity Exam: normal inspection, No pedal edema, No swelling Back Exam: normal inspection, No rash OBJECTIVE DATA Vital Signs: Vital Signs - 24 hr Temp Pulse Resp BP Pulse Ox 06/10/22 10:32 97.9 F 93 H 18 112/56 93 L 06/10/22 07:13 98.0 F 89 18 107/53 92 L 06/10/22 05:47 86 20 91 L 06/10/22 04:00 98.3 F 87 22 108/57 90 L 06/10/22 00:00 97.9 F 97 H 25 H 100/55 94 L 06/09/22 22:31 75 20 95 06/09/22 19:57 98.2 F 102 H 25 H 107/51 93 L 06/09/22 19:18 100 H 22 92 L 06/09/22 15:56 98.0 F 102 H 20 121/65 94 L 06/09/22 14:57 92 H 18 93 L Pain Assessment - Last Documented Pain Intensity 0 Pain Scale Used 0-10 Pain Scale Intake and Output: Intake & Output 06/08/22 06/09/22 06/10/22 06/11/22 11:59 11:59 11:59 11:59 Intake Total 857 860 Balance 857 860 Weight 64.9 kg 66.9 kg Lab Results: Lab Results-Last 24 Hours 06/10/22 06/10/22 Range/Units 07:39 07:39 WBC 17.7 H (4.0-10.5) x10^3/uL RBC 3.51 L (4.1-5.4) x10^6/uL Hgb 10.4 L (12.0-16.0) g/dL Hct 32.4 L (35-47) % MCV 92.3 D (78-100) fL MCH 29.6 (26-32) pg MCHC 32.1 (32-36) g/dL RDW 14.0 (11.5-14.0) % Plt Count 317 D (150-450) x10^3/uL MPV 10.8 (7.5-11.0) fL Gran % 93.1 H (36.0-66.0) % Immature Gran % (Auto) 0.7 H (0.00-0.4) % Nucleat RBC Rel Count 0.0 (0.00-0.1) % Eos # (Auto) 0 (0-0.5) x10^3/uL Immature Gran # (Auto) 0.12 H (0.00-0.03) x10^3u/L Absolute Lymphs (auto) 0.82 L (1.0-4.6) x10^3/uL Absolute Monos (auto) 0.27 (0.0-1.3) x10^3/uL Absolute Nucleated RBC 0.00 (0.00-0.01) x10^3u/L Lymphocytes % 4.6 L (24.0-44.0) % Monocytes % 1.5 (0.0-12.0) % Eosinophils % 0.0 (0.00-5.0) % Basophils % 0.1 (0.0-0.4) % Absolute Granulocytes 16.43 H (1.4-6.9) x10^3/uL Basophils # 0.02 (0-0.4) x10^3/uL Sodium 141 D (137-145) mmol/L Potassium 3.5 (3.5-5.1) mmol/L Chloride 107 (98-107) mmol/L Carbon Dioxide 27 (22-30) mmol/L Anion Gap 11.2 (5-15) MEQ/L BUN 28 H (7-17) mg/dL Creatinine 0.46 L (0.52-1.04) mg/dL Estimated GFR > 60.0 ML/MIN Glucose 168 H (74-106) mg/dL Calcium 8.6 (8.4-10.2) mg/dL Radiology Exams: Radiology Procedures Category Date Time Status CHEST 1 VIEW (PORTABLE) Stat Exams 06/08/22 18:48 Completed FEMUR Stat Exams 06/08/22 21:54 Completed PELVIS (1 OR 2 VIEWS) Stat Exams 06/08/22 21:54 Completed Multi-Disciplinary Progress Notes: Multi-Disciplinary Progress Notes 06/10/22 10:09 Case Management Note by Bekah Landon NO CHANGE IN DC PLANS- PATIENT TO RETURN TO [place] AT TIME OF DC Initialized on 06/10/22 10:09 - END OF NOTE Assessment/Plan (1) COPD exacerbation Current Visit: Yes Status: Acute Assessment & Plan: Doing great, on rocephin and zithromax day #2. On IV solumedrol [id number] - will change to 60mg po prednisone today. May be able to d/c back to [facility] tomorrow. Code(s): J44.1 - CHRONIC OBSTRUCTIVE PULMONARY DISEASE W (ACUTE) EXACERBATION (2) Hypoxia Current Visit: Yes Status: Acute Code(s): R09.02 - HYPOXEMIA (3) Left hip pain Current Visit: Yes Status: Acute Code(s): M25.552 - PAIN IN LEFT HIP (4) Leukocytosis Current Visit: Yes Status: Acute Qualifiers: Leukocytosis type: unspecified Qualified Code(s): D72.829 - Elevated white blood cell count, unspecified Code(s): D72.829 - ELEVATED WHITE BLOOD CELL COUNT, UNSPECIFIED (5) Cerebral palsy Current Visit: No Status: Chronic Qualifiers: Cerebral palsy type: unspecified type Qualified Code(s): G80.9 - Cerebral palsy, unspecified Code(s): G80.9 - CEREBRAL PALSY, UNSPECIFIED
[2022-06-10] MEDS: Singulair 10 MG PO SCH (21:18)
[2022-06-10] MEDS: Zithromax 500 MG/ 250 ML NaCl Premix 500 MG/250 ML IVPB IV SCH (21:19)
[2022-06-11] MEDS: Robitussin-Dm Syrup PO PRN ×2 (04:07→12:34)
[2022-06-11] MEDS: Advair Hfa 115/21 Common canister IH SCH ×2 (05:34→18:06)
[2022-06-11] MEDS: PROVENTIL 2.5 MG/3 ML NEB IH SCH ×4 (05:34→23:57)
[2022-06-11 05:42] LABS: Absolute Neutrophil Ct (ANC) 11.86 x10^3/uL (1.4-6.9); Basophil (Absolute #) 0.02 x10^3/uL (0-0.4); Eosinophil (Absolute #) 0 x10^3/uL (0-0.5); Hematocrit 32.3 % (35-47); Hemoglobin 10.1 g/dL (12.0-16.0); Lymphocyte (Absolute #) 1.52 x10^3/uL (1.0-4.6); Lymphocytes % 10.8 % (24.0-44.0); Mean Cell Volume 92.8 fL (78-100); Mean Corpuscular Hgb Concent. 31.3 g/dL (32-36); Mean Platelet Volume 10.9 fL (7.5-11.0); Monocyte (Absolute #) 0.57 x10^3/uL (0.0-1.3); Neutrophil % 84.2 % (36.0-66.0); Platelet Count 369 x10^3/uL (150-450); Red Blood Count 3.48 x10^6/uL (4.1-5.4); Red Cell Distribution Width 13.7 % (11.5-14.0); White Blood Count 14.1 x10^3/uL (4.0-10.5)
[2022-06-11 06:24] LABS: ANION GAP 10.2 MEQ/L (5-15); BLOOD UREA NITROGEN 32 mg/dL (7-17); CHLORIDE 105 mmol/L (98-107); Calcium 8.5 mg/dL (8.4-10.2); Carbon Dioxide 27 mmol/L (22-30); Creatinine 1 0.54 mg/dL (0.52-1.04); EST GLOMERULAR FILTRATION RATE > 60.0 ML/MIN; Glucose 131 mg/dL (74-106); SODIUM 139 mmol/L (137-145)
[2022-06-11 06:37] LABS: Potassium 2.9 mmol/L (3.5-5.1)
[2022-06-11] MEDS: POTASSIUM CHLORIDE 20 mEq IN WATER 100ML 100 ML IV SCH ×2 (08:09→10:14)
[2022-06-11] MEDS: Sodium Chloride 0.9% 1000 ML 1,000 ML IV SCH ×2 (08:11→23:47)
[2022-06-11] MEDS: Klor Con PO SCH ×4 (08:14→16:12)
[2022-06-11] MEDS: Protonix 20MG Tablet PO SCH (08:23)
[2022-06-11] MEDS: DELTASONE 20 MG PO SCH (08:23)
[2022-06-11] MEDS: CLARITIN 10 MG PO SCH (08:23)
[2022-06-11] MEDS: TYLENOL 325 MG PO PRN (08:23)
[2022-06-11] MEDS: Artificial Tears 15 ML OP SCH ×3 (08:24→20:50)
--- NOTE | 2022-06-11 08:31 | CONS ---
CONSULT DATE: 06/10/2022 HISTORY: Miss Leidy Duran is an 82-year-old with history of chronic obstructive pulmonary disease who has been transferred from skilled nursing with complaints of shortness of breath. The patient is a poor historian. She is a resident of [facility] in [facility]. The patient does report nonspecific retrosternal chest heaviness off and on. She has cough which is minimally productive. PAST MEDICAL HISTORY: Positive for history of chronic obstructive pulmonary disease, hypertension, allergic rhinitis, cerebral palsy, gastroesophageal reflux and pneumonia. PAST SURGICAL HISTORY: No recent surgery. She has had left hip fracture with surgical repair. PERSONAL AND SOCIAL HISTORY: She was living with her sister prior to moving into the nursing facility. She MEDICATIONS: Home and current medications are reviewed. ALLERGIES: NKDA. PHYSICAL EXAMINATION: This is an elderly woman able to carry out a conversation, denies any shortness of breath at rest. VITAL SIGNS: Temperature 97.9F, heart rate 85, blood pressure 111/50 mmHg and saturating 95%. HEENT: Normocephalic. Oral exam limited. NECK: Supple. CVS: First and second heart sounds are normal, regular, rhythmic. RESPIRATORY: Shows diminished breath sounds, crackles and rhonchi are heard. ABDOMEN: Obese. EXTREMITIES: Trace edema is noted. LABORATORY DATA AND TESTS: White count 21.6, hemoglobin 11.4, hematocrit 36, PLT count 275,000. The pH is 7.56, pCO2 of 32 and pO2 of 86. Influenza A/B, respiratory syncytial virus and COVID tests were negative. D-dimer is 0.54. Sodium 132, BUN 14, creatinine 0.3. Chest x-ray noted. ASSESSMENT: This is an 82-year-old skilled nursing patient admitted with: 1) Shortness of breath, might have had prior. 2) Prior history of pneumonia. 3) Likely underlying chronic obstructive pulmonary disease. 4) Chronic hypoxemia. RECOMMENDATIONS: Continue IV antibiotics, continue bronchodilators, supplemental oxygen, deep vein thrombosis and GI prophylaxis, continue home medications. Other recommendations are awaiting clinical improvement.
--- NOTE | 2022-06-11 10:49 | PCM.DS ---
Discharge Summary Date of Admission: 06/09/22 11:41 Admitting Physician: YENNIFER CHAUDHARY Consults: Consults on Case 06/10/22 11:03 Consult Pulmonology ROUTINE Primary Care Provider: GEOFF CLAROS Allergies Allergies No Known Drug Allergies Allergy (Verified 06/08/22 19:16) Hospital Summary - Hospital Course Hospital Course: Pt is an 82 yo female pt of Dr. Claros from [facility] with hx CP and COPD admitted through ER for COPD exacerbation. CXR showed bibasilar infiltrates/atelectasis unchanged from Mar 2022 (slightly improved). She c/o L leg pain but xrays were nonacute. She is on O2 at 4L [place]. She had a nosebleed today. Her potassium is 2.9 this morning and will be repleted; will increase po potassium on discharge. She has been on rocephin and zithromax - today is day #3. yesterday I changed her IV steroid to po and will taper that over a week. - Vitals & Intake/Output Vital Signs: Vital Signs Temperature 97.8 F 06/11/22 07:25 Pulse Rate 81 06/11/22 07:25 Respiratory Rate 16 06/11/22 07:25 Blood Pressure 122/58 06/11/22 07:25 O2 Sat by Pulse Oximetry 92 L 06/11/22 07:25 Intake & Output: Intake & Output 06/08/22 06/09/22 06/10/22 06/11/22 11:59 11:59 11:59 11:59 Intake Total 052 439 9903 Balance 101 442 7920 Weight 64.9 kg 66.9 kg 66.8 kg - Lab Result Diagrams: 06/11/22 04:45 06/11/22 04:45 Lab Results-Last 24 Hrs: Lab Results-Last 24 Hours 06/11/22 06/11/22 06/11/22 Range/Units 04:45 04:45 06:37 WBC 14.1 H (4.0-10.5) x10^3/uL RBC 3.48 L (4.1-5.4) x10^6/uL Hgb 10.1 L (12.0-16.0) g/dL Hct 32.3 L (35-47) % MCV 92.8 (78-100) fL MCH 29.0 (26-32) pg MCHC 31.3 L (32-36) g/dL RDW 13.7 (11.5-14.0) % Plt Count 369 (150-450) x10^3/uL MPV 10.9 (7.5-11.0) fL Gran % 84.2 H (36.0-66.0) % Immature Gran % (Auto) 0.9 H (0.00-0.4) % Nucleat RBC Rel Count 0.0 (0.00-0.1) % Eos # (Auto) 0 (0-0.5) x10^3/uL Immature Gran # (Auto) 0.12 H (0.00-0.03) x10^3u/L Absolute Lymphs (auto) 1.52 (1.0-4.6) x10^3/uL Absolute Monos (auto) 0.57 (0.0-1.3) x10^3/uL Absolute Nucleated RBC 0.00 (0.00-0.01) x10^3u/L Lymphocytes % 10.8 L (24.0-44.0) % Monocytes % 4.0 (0.0-12.0) % Eosinophils % 0.0 (0.00-5.0) % Basophils % 0.1 (0.0-0.4) % Absolute Granulocytes 11.86 H (1.4-6.9) x10^3/uL Basophils # 0.02 (0-0.4) x10^3/uL Sodium 139 (137-145) mmol/L Potassium 2.9 L* (3.5-5.1) mmol/L Chloride 105 (98-107) mmol/L Carbon Dioxide 27 (22-30) mmol/L Anion Gap 10.2 (5-15) MEQ/L BUN 32 H (7-17) mg/dL Creatinine 0.54 (0.52-1.04) mg/dL Estimated GFR > 60.0 ML/MIN Glucose 131 H (74-106) mg/dL Calcium 8.5 (8.4-10.2) mg/dL Magnesium 2.5 H (1.6-2.3) mg/dL Micro Results-Entire Visit: Microbiology 06/08/22 19:20 Blood Culture - Preliminary Blood NO GROWTH TO DATE 06/08/22 19:45 Blood Culture - Preliminary Blood NO GROWTH TO DATE - Procedures and Test Procedures and Tests throughout Hospitalization: Therapy Orders & Screens 06/09/22 01:38 Oxygen Nasal Cannula 4 lpm Comment: Diagnosis: Hypoxia, SOB,hyponatrimia, hypokalemia Respiratory Therapy Assessment DAILY Comment: Diagnosis: Hypoxia, SOB,hyponatrimia, hypokalemia 06/09/22 07:00 Respiratory MDI BID Comment: ADVAIR 115/21 2 PUFFS BID Diagnosis: Hypoxia, SOB,hyponatrimia, hypokalemia Discharge Exam General Appearance: no apparent distress, alert Neurologic Exam: oriented x 3, cooperative Eye Exam: eyes nml inspection Ears, Nose, Throat Exam: other (small amount dried blood R nare) Neck Exam: normal inspection Respiratory Exam: diminished breath sounds (good air exchange), wheezing (faint scattered wheeze) Cardiovascular Exam: regular rate/rhythm, normal heart sounds, No murmur Gastrointestinal/Abdomen Exam: soft, normal bowel sounds, tenderness (LLQ), No mass, No guarding, No rebound Extremity Exam: normal inspection, No pedal edema, No swelling Skin Exam: normal color, warm, dry, No rash Final Diagnosis/Problem List - Final Discharge Diagnosis/Problem (1) COPD exacerbation Current Visit: Yes Status: Acute Assessment & Plan: Finished 3d of rocephin and zithromax, will send home on po prednisone and doxycycline. Code(s): J44.1 - CHRONIC OBSTRUCTIVE PULMONARY DISEASE W (ACUTE) EXACERBATION (2) Hypoxia Current Visit: Yes Status: Acute Code(s): R09.02 - HYPOXEMIA (3) Left hip pain Current Visit: Yes Status: Acute Code(s): M25.552 - PAIN IN LEFT HIP (4) Leukocytosis Current Visit: Yes Status: Acute Code(s): D72.829 - ELEVATED WHITE BLOOD CELL COUNT, UNSPECIFIED (5) Cerebral palsy Current Visit: No Status: Chronic Code(s): G80.9 - CEREBRAL PALSY, UNSPECIFIED (6) Hypokalemia Current Visit: Yes Status: Acute Code(s): E87.6 - HYPOKALEMIA - Discharge Disposition: Home, Self-Care Condition: Stable Prescriptions: New Lactobacillus Acidophilus [Acidophilus TABLET] 1 tab PO BID #10 tablet Prednisone 20 mg [Deltasone 20 mg] 20 mg PO DAILY #17 tablet Potassium Chloride Tab* [Klor Con] 20 meq PO BID #14 tablet Doxycycline Hyclate 100 mg [Vibramycin 100 MG] 100 mg PO BID #8 tab Continue Acetaminophen 325 mg [Tylenol 325 mg] 325 mg PO Q4HPRN PRN PRN Reason: Pain polyethylene glycoL 3350 [Polyethylene Glycol 3350] 17 gm PO DAILY PRN PRN PRN Reason: Constipation Montelukast Sodium 10 mg [Singulair 10 MG] 10 mg PO HS hydroCHLOROthiazide [Hydrochlorothiazide] 25 mg PO UD Calcium Carbonate [Calcium] 1,000 mg PO DAILY Hypromellose [Tears Lubricant Eye Drop] 15 ml OP TID Ondansetron ODT 4 MG [Zofran Odt 4 mg] 4 mg PO Q6HPRN PRN PRN Reason: Nausea Diclofenac Sodium [Voltaren Arthritis Pain] 1 gm TOP Q6HPRN PRN PRN Reason: Pain Albuterol Sulfate [Albuterol Sulfate Hfa] 2 puff IH Q6HPRN PRN PRN Reason: WHEEZING Hydrocortisone 1% Cream [Cortisone 1% Cream] 1 gm TP Q8HPRN PRN PRN Reason: HEMORRHOIDS Budesonide/Formoterol Fumarate [Budesonide-Formoterol 160-4.5] 2 puff IH BID Guaifenesin/Dextromethorphan [Guaifenesin-Dm 100-10 mg/5 ml] 10 ml PO Q6HPRN PRN PRN Reason: Cough Loratadine 10 mg [Claritin 10 mg] 10 mg PO DAILY Pantoprazole 20 mg [Protonix 20MG Tablet] 20 mg PO DAILY Follow up with: GEOFF CLAROS MD [Primary Care Provider] -
--- NOTE | 2022-06-11 11:43 | XRAY ---
Indication: Pain. Multiple contiguous axial images obtained through the abdomen and pelvis without contrast. Comparison: None Study is slightly degraded by respiration artifact throughout. Lung bases demonstrates mild bibasilar subsegmental atelectasis/scarring and tiny bibasilar effusions. Heart not enlarged. Stomach and noncontrasted bowel loops appear nonobstructed. Slightly prominent appendix, space the base of the appendix up to 9 mm in diameter without periappendiceal stranding. Mild/moderate scattered colonic fecal debris throughout. Distended gallbladder with 2 cm stone. Prominent uterus with at least 2 fundal calcified fibroids, largest 1.8 cm. No free fluid/air. Remaining liver, pancreas, spleen, adrenal glands, kidneys, ureters, and bladder are unremarkable for noncontrast exam. Mild scattered aortoiliac calcifications. Osseous structures demonstrate osteopenia, mild/moderate degenerative changes throughout the lumbar spine, moderate elongated dextrorotoscoliosis, mild degenerative changes both hips, and incompletely visualized proximal right femur intramedullary temitope. Impression: 1. Respiration artifact. 2. Nonspecific tiny bibasilar pleural effusions without cardiomegaly. 3. Distended gallbladder with 2 cm gallstone. Sonogram may yield further information if clinically warranted. 4. Borderline prominent appendix without periappendiceal stranding. Cannot exclude mild/early appendicitis on this noncontrast exam. 5. Prominent uterus with at least 2 calcified fibroids. 6. Diffuse fecal stasis. 7. Chronic findings including arteriosclerotic disease and chronic bony findings.
[2022-06-11] MEDS: ROCEPHIN 1 Gm-D5w 50 ml Bag** 1 G/50 ML IVPB IV SCH (13:18)
[2022-06-11] MEDS: Singulair 10 MG PO SCH (20:50)
[2022-06-11] MEDS: Zithromax 500 MG/ 250 ML NaCl Premix 500 MG/250 ML IVPB IV SCH (20:51)
[2022-06-12] MEDS: TYLENOL 325 MG PO PRN (01:02)
[2022-06-12] MEDS: Sodium Chloride 0.9% 1000 ML 1,000 ML IV SCH ×2 (05:17→15:59)
[2022-06-12 06:29] LABS: Basophil (Absolute #) 0.06 x10^3/uL (0-0.4); Eosinophil % 0.1 % (0.00-5.0); Eosinophil (Absolute #) 0.02 x10^3/uL (0-0.5); Hemoglobin 10.4 g/dL (12.0-16.0); Lymphocyte (Absolute #) 3.83 x10^3/uL (1.0-4.6); Lymphocytes % 28.2 % (24.0-44.0); Mean Cell Volume 92.7 fL (78-100); Mean Corpuscular Hemoglobin 29.2 pg (26-32); Mean Corpuscular Hgb Concent. 31.5 g/dL (32-36); Mean Platelet Volume 11.2 fL (7.5-11.0); Monocytes % 6.6 % (0.0-12.0); Neutrophil % 61.9 % (36.0-66.0); Platelet Count 376 x10^3/uL (150-450); Red Blood Count 3.56 x10^6/uL (4.1-5.4); Red Cell Distribution Width 14.1 % (11.5-14.0); White Blood Count 13.6 x10^3/uL (4.0-10.5)
[2022-06-12 06:47] LABS: ANION GAP 10.5 MEQ/L (5-15); BLOOD UREA NITROGEN 19 mg/dL (7-17); CHLORIDE 105 mmol/L (98-107); Calcium 8.1 mg/dL (8.4-10.2); Carbon Dioxide 28 mmol/L (22-30); Creatinine 1 0.47 mg/dL (0.52-1.04); EST GLOMERULAR FILTRATION RATE > 60.0 ML/MIN; Glucose 84 mg/dL (74-106); Potassium 3.8 mmol/L (3.5-5.1); SODIUM 141 mmol/L (137-145)
[2022-06-12] MEDS: PROVENTIL 2.5 MG/3 ML NEB IH SCH (07:09)
[2022-06-12] MEDS: Advair Hfa 115/21 Common canister IH SCH ×2 (07:10→18:26)
[2022-06-12] MEDS: ROCEPHIN 1 Gm-D5w 50 ml Bag** 1 G/50 ML IVPB IV SCH (09:12)
[2022-06-12] MEDS: Protonix 20MG Tablet PO SCH (09:12)
[2022-06-12] MEDS: CLARITIN 10 MG PO SCH (09:12)
[2022-06-12] MEDS: hydroDIURIL 25 MG PO SCH (09:13)
[2022-06-12] MEDS: DELTASONE 20 MG PO SCH (09:13)
--- NOTE | 2022-06-12 12:16 | PCM.NOTE ---
Date and Time: 06/12/22 1213 Subjective Assessment: Patient was admitted for COPD exacerbation and cough has improved/reolved. She also C/O abdominal pain and CT abd/pelvis reveald gallstone with distended GB and possible appendicitis. VSS. WBC on admission was 21,000 today is 13,600 on IV Rocephin and Zithromax since 06/09/22.Await surgery consult later today. Objective Exam General Appearance: no apparent distress, anxiety Neurologic Exam: alert, oriented x 3 Skin Exam: normal color, warm, dry Neck Exam: normal inspection Respiratory Exam: normal breath sounds Cardiovascular Exam: regular rate/rhythm Gastrointestinal/Abdomen Exam: tenderness (RUQ and RLQ), distention, guarding (when palpating RLQ) Extremity Exam: deformities (polio), limited range of motion OBJECTIVE DATA Vital Signs: Vital Signs - 24 hr Temp Pulse Resp BP Pulse Ox 06/12/22 11:09 97.8 F 91 H 18 132/68 94 L 06/12/22 07:48 96 06/12/22 07:43 97.3 F 69 18 136/77 96 06/12/22 07:13 75 20 96 06/12/22 04:00 98.2 F 76 24 120/83 96 06/12/22 02:00 93 L 06/11/22 23:40 97.5 F 88 16 123/68 93 L 06/11/22 20:20 98.3 F 99 H 22 112/53 94 L 06/11/22 19:45 96.7 F 90 20 120/58 94 L 06/11/22 18:08 90 20 94 L 06/11/22 16:00 96.7 F 93 H 16 120/58 92 L 06/11/22 14:08 84 18 95 Pain Assessment - Last Documented Pain Intensity 0 Pain Scale Used 0-10 Pain Scale Intake and Output: Intake & Output 06/10/22 06/11/22 06/12/22 06/13/22 11:59 11:59 11:59 11:59 Intake Total 860 1200 2526 Output Total 250 Balance 860 1200 2276 Weight 66.9 kg 66.8 kg 68.7 kg Lab Results: Lab Results-Last 24 Hours 06/11/22 06/12/22 06/12/22 Range/Units 14:55 05:25 05:25 WBC 13.6 H (4.0-10.5) x10^3/uL RBC 3.56 L (4.1-5.4) x10^6/uL Hgb 10.4 L (12.0-16.0) g/dL Hct 33.0 L (35-47) % MCV 92.7 (78-100) fL MCH 29.2 (26-32) pg MCHC 31.5 L (32-36) g/dL RDW 14.1 H (11.5-14.0) % Plt Count 376 (150-450) x10^3/uL MPV 11.2 H (7.5-11.0) fL Gran % 61.9 (36.0-66.0) % Immature Gran % (Auto) 2.8 H (0.00-0.4) % Nucleat RBC Rel Count 0.0 (0.00-0.1) % Eos # (Auto) 0.02 (0-0.5) x10^3/uL Immature Gran # (Auto) 0.38 H (0.00-0.03) x10^3u/L Absolute Lymphs (auto) 3.83 (1.0-4.6) x10^3/uL Absolute Monos (auto) 0.90 (0.0-1.3) x10^3/uL Absolute Nucleated RBC 0.00 (0.00-0.01) x10^3u/L Lymphocytes % 28.2 (24.0-44.0) % Monocytes % 6.6 (0.0-12.0) % Eosinophils % 0.1 (0.00-5.0) % Basophils % 0.4 (0.0-0.4) % Absolute Granulocytes 8.40 H (1.4-6.9) x10^3/uL Basophils # 0.06 (0-0.4) x10^3/uL Sodium 141 (137-145) mmol/L Potassium 3.9 D 3.8 (3.5-5.1) mmol/L Chloride 105 (98-107) mmol/L Carbon Dioxide 28 (22-30) mmol/L Anion Gap 10.5 (5-15) MEQ/L BUN 19 H (7-17) mg/dL Creatinine 0.47 L (0.52-1.04) mg/dL Estimated GFR > 60.0 ML/MIN Glucose 84 (74-106) mg/dL Calcium 8.1 L (8.4-10.2) mg/dL Radiology Exams: Radiology Procedures Category Date Time Status ABDOMEN AND PELVIS W/0 CONTRAS [CT] Routine Exams 06/11/22 10:48 Completed Multi-Disciplinary Progress Notes: Multi-Disciplinary Progress Notes 06/11/22 14:15 Case Management Note by Bekah Landon S/W [facility]UR[facility] AT [facility]- PATIENT ABLE TO COME BACK OVER THE WEEKEND WHEN READY Initialized on 06/11/22 14:15 - END OF NOTE 06/11/22 13:01 Case Management Note by Bekah Landon NO CHANGE N DC PLANS- PATIENT TO RETURN TO [facility] AT TIME OF DC Initialized on 06/11/22 13:01 - END OF NOTE Assessment/Plan (1) Leukocytosis Current Visit: Yes Status: Acute Qualifiers: Leukocytosis type: unspecified Qualified Code(s): D72.829 - Elevated white blood cell count, unspecified Assessment & Plan: daily improvement Code(s): D72.829 - ELEVATED WHITE BLOOD CELL COUNT, UNSPECIFIED (2) COPD exacerbation Current Visit: Yes Status: Resolved Assessment & Plan: is on Deltasone 60mg daily will wean dose Code(s): J44.1 - CHRONIC OBSTRUCTIVE PULMONARY DISEASE W (ACUTE) EXACERBATION (3) Gall bladder disease Current Visit: Yes Status: Acute Assessment & Plan: GB distention per CT with large stone Code(s): K82.9 - DISEASE OF GALLBLADDER, UNSPECIFIED (4) Right lower quadrant abdominal pain Current Visit: Yes Status: Acute Assessment & Plan: appendicitis per CT abd/pelvis(note ptn states she does not have an appendics) Surgery to consult today
[2022-06-12] MEDS ORDERED: DELTASONE 20 MG PO SCH (12:20)
[2022-06-12] MEDS ORDERED: PROVENTIL 2.5 MG/3 ML NEB IH PRN (12:48)
[2022-06-12] MEDS: Artificial Tears 15 ML OP SCH ×3 (12:57→21:10)
[2022-06-12] MEDS ORDERED: Sodium Chloride 0.9% 1000 ML 1,000 ML IV SCH (17:45)
[2022-06-12] MEDS: Singulair 10 MG PO SCH (21:10)
[2022-06-12] MEDS: Zithromax 500 MG/ 250 ML NaCl Premix 500 MG/250 ML IVPB IV SCH (21:11)
[2022-06-12] MEDS: Robitussin-Dm Syrup PO PRN (23:18)
[2022-06-13 05:41] LABS: Absolute Neutrophil Ct (ANC) 6.17 x10^3/uL (1.4-6.9); Basophil (Absolute #) 0.03 x10^3/uL (0-0.4); Eosinophil % 0.1 % (0.00-5.0); Eosinophil (Absolute #) 0.01 x10^3/uL (0-0.5); Hematocrit 35.6 % (35-47); Hemoglobin 11.5 g/dL (12.0-16.0); Lymphocyte (Absolute #) 2.52 x10^3/uL (1.0-4.6); Lymphocytes % 26.3 % (24.0-44.0); Mean Corpuscular Hemoglobin 29.4 pg (26-32); Mean Corpuscular Hgb Concent. 32.3 g/dL (32-36); Mean Platelet Volume 10.3 fL (7.5-11.0); Monocyte (Absolute #) 0.46 x10^3/uL (0.0-1.3); Monocytes % 4.8 % (0.0-12.0); Neutrophil % 64.2 % (36.0-66.0); Platelet Count 387 x10^3/uL (150-450); Red Blood Count 3.91 x10^6/uL (4.1-5.4); Red Cell Distribution Width 13.7 % (11.5-14.0); White Blood Count 9.6 x10^3/uL (4.0-10.5)
[2022-06-13 06:08] LABS: AMYLASE 30 U/L (30-110); ANION GAP 7.3 MEQ/L (5-15); BLOOD UREA NITROGEN 10 mg/dL (7-17); CHLORIDE 100 mmol/L (98-107); Calcium 8.5 mg/dL (8.4-10.2); Carbon Dioxide 33 mmol/L (22-30); Creatinine 1 0.43 mg/dL (0.52-1.04); EST GLOMERULAR FILTRATION RATE > 60.0 ML/MIN; Glucose 106 mg/dL (74-106); LIPASE 22 U/L (23-300); Potassium 3.8 mmol/L (3.5-5.1); SODIUM 136 mmol/L (137-145)
[2022-06-13] MEDS: Advair Hfa 115/21 Common canister IH SCH ×2 (07:15→19:42)
[2022-06-13] MEDS: DELTASONE 20 MG PO SCH (10:36)
[2022-06-13] MEDS: CLARITIN 10 MG PO SCH (10:36)
[2022-06-13] MEDS: Artificial Tears 15 ML OP SCH ×3 (10:37→21:12)
[2022-06-13] MEDS: Protonix 20MG Tablet PO SCH (10:37)
[2022-06-13] MEDS: ROCEPHIN 1 Gm-D5w 50 ml Bag** 1 G/50 ML IVPB IV SCH (10:37)
[2022-06-13] MEDS: Singulair 10 MG PO SCH (21:12)
[2022-06-13] MEDS: Zithromax 500 MG/ 250 ML NaCl Premix 500 MG/250 ML IVPB IV SCH (21:15)
--- NOTE | 2022-06-13 23:35 | PCM.NOTE ---
Date and Time: 06/13/222320 Subjective Assessment: Patient states abdominal pain has approved after having 2 good BMs and xs urine output ,catheter placed. Dr Khalil evaluated today and reassured no surgery needed. GBUS will be done in the AM. Appetite is good,tolerating soft diet with honeyed thickened liquids in place of Pureed diet. Objective Exam General Appearance: no apparent distress Neurologic Exam: alert, oriented x 3, cooperative Skin Exam: normal color, warm, dry Ears, Nose, Throat Exam: tonsillar exudate Cardiovascular Exam: regular rate/rhythm Gastrointestinal/Abdomen Exam: soft, tenderness (1+/4 no guarding(no loner RLQ tenderness)) OBJECTIVE DATA Vital Signs: Vital Signs - 24 hr Temp Pulse Resp BP Pulse Ox 06/13/22 20:00 97.8 F 98 H 21 114/55 96 06/13/22 19:42 106 H 16 96 06/13/22 16:00 97.7 F 81 18 119/59 94 L 06/13/22 12:00 97.5 F 94 H 16 133/72 93 L 06/13/22 08:00 97.5 F 84 18 135/63 92 L 06/13/22 07:20 73 16 93 L 06/13/22 04:00 98.2 F 90 23 131/59 94 L 06/12/22 23:53 97.3 F 85 19 116/54 95 Pain Assessment - Last Documented Pain Intensity 0 Pain Scale Used 0-10 Pain Scale Intake and Output: Intake & Output 06/11/22 06/12/22 06/13/22 06/14/22 11:59 11:59 11:59 11:59 Intake Total 1200 2526 2742 1400 Output Total 250 3075 950 Balance 1200 2276 -333 450 Weight 66.8 kg 68.7 kg 66.9 kg 66.9 kg Lab Results: Lab Results-Last 24 Hours 06/13/22 06/13/22 Range/Units 05:06 05:06 WBC 9.6 (4.0-10.5) x10^3/uL RBC 3.91 L (4.1-5.4) x10^6/uL Hgb 11.5 L (12.0-16.0) g/dL Hct 35.6 (35-47) % MCV 91.0 (78-100) fL MCH 29.4 (26-32) pg MCHC 32.3 (32-36) g/dL RDW 13.7 (11.5-14.0) % Plt Count 387 (150-450) x10^3/uL MPV 10.3 (7.5-11.0) fL Gran % 64.2 (36.0-66.0) % Immature Gran % (Auto) 4.3 H (0.00-0.4) % Nucleat RBC Rel Count 0.2 H (0.00-0.1) % Eos # (Auto) 0.01 (0-0.5) x10^3/uL Immature Gran # (Auto) 0.41 H (0.00-0.03) x10^3u/L Absolute Lymphs (auto) 2.52 (1.0-4.6) x10^3/uL Absolute Monos (auto) 0.46 (0.0-1.3) x10^3/uL Absolute Nucleated RBC 0.02 H (0.00-0.01) x10^3u/L Lymphocytes % 26.3 (24.0-44.0) % Monocytes % 4.8 (0.0-12.0) % Eosinophils % 0.1 (0.00-5.0) % Basophils % 0.3 (0.0-0.4) % Absolute Granulocytes 6.17 (1.4-6.9) x10^3/uL Basophils # 0.03 (0-0.4) x10^3/uL Sodium 136 L (137-145) mmol/L Potassium 3.8 (3.5-5.1) mmol/L Chloride 100 (98-107) mmol/L Carbon Dioxide 33 H (22-30) mmol/L Anion Gap 7.3 (5-15) MEQ/L BUN 10 (7-17) mg/dL Creatinine 0.43 L (0.52-1.04) mg/dL Estimated GFR > 60.0 ML/MIN Glucose 106 (74-106) mg/dL Calcium 8.5 (8.4-10.2) mg/dL Amylase 30 (30-110) U/L Lipase 22 L (23-300) U/L Assessment/Plan (1) Leukocytosis Current Visit: Yes Status: Resolved Qualifiers: Leukocytosis type: unspecified Qualified Code(s): D72.829 - Elevated white blood cell count, unspecified Code(s): D72.829 - ELEVATED WHITE BLOOD CELL COUNT, UNSPECIFIED (2) COPD exacerbation Current Visit: Yes Status: Resolved Code(s): J44.1 - CHRONIC OBSTRUCTIVE PULMONARY DISEASE W (ACUTE) EXACERBATION (3) Gall bladder disease Current Visit: Yes Status: Acute Code(s): K82.9 - DISEASE OF GALLBLADDER, UNSPECIFIED (4) Right lower quadrant abdominal pain Current Visit: Yes Status: Resolved
[2022-06-14 05:39] LABS: Absolute Neutrophil Ct (ANC) 6.24 x10^3/uL (1.4-6.9); Basophil (Absolute #) 0.06 x10^3/uL (0-0.4); Eosinophil % 2.9 % (0.00-5.0); Eosinophil (Absolute #) 0.38 x10^3/uL (0-0.5); Hemoglobin 11.4 g/dL (12.0-16.0); Lymphocyte (Absolute #) 5.07 x10^3/uL (1.0-4.6); Lymphocytes % 38.9 % (24.0-44.0); Mean Cell Volume 91.8 fL (78-100); Mean Corpuscular Hemoglobin 29.1 pg (26-32); Mean Corpuscular Hgb Concent. 31.7 g/dL (32-36); Mean Platelet Volume 9.9 fL (7.5-11.0); Monocyte (Absolute #) 0.71 x10^3/uL (0.0-1.3); Monocytes % 5.4 % (0.0-12.0); Neutrophil % 47.8 % (36.0-66.0); Platelet Count 383 x10^3/uL (150-450); Red Blood Count 3.92 x10^6/uL (4.1-5.4); Red Cell Distribution Width 14.1 % (11.5-14.0); White Blood Count 13.1 x10^3/uL (4.0-10.5)
[2022-06-14 06:10] LABS: AMYLASE 54 U/L (30-110); ANION GAP 5.6 MEQ/L (5-15); BLOOD UREA NITROGEN 21 mg/dL (7-17); CHLORIDE 102 mmol/L (98-107); Calcium 8.2 mg/dL (8.4-10.2); Carbon Dioxide 30 mmol/L (22-30); Creatinine 1 0.45 mg/dL (0.52-1.04); EST GLOMERULAR FILTRATION RATE > 60.0 ML/MIN; Glucose 87 mg/dL (74-106); LIPASE 43 U/L (23-300); Potassium 3.1 mmol/L (3.5-5.1); SODIUM 134 mmol/L (137-145)
[2022-06-14 07:20] LABS: Slide Review 1 YES
[2022-06-14] MEDS: Advair Hfa 115/21 Common canister IH SCH (08:11)
--- NOTE | 2022-06-14 08:59 | PCM.DS ---
Discharge Summary Date of Admission: 06/09/22 11:41 Admitting Physician: YENNIFER CHAUDHARY Consults: Consults on Case 06/10/22 11:03 Consult Pulmonology ROUTINE 06/11/22 13:57 Consult Surgery ROUTINE Primary Care Provider: GEOFF CLAROS Allergies Allergies No Known Drug Allergies Allergy (Verified 06/08/22 19:16) Hospital Summary - Hospital Course Hospital Course: Pt is an 82 yo female from [facility] (Dr. Claros) with COPD and CP who was admitted to [facility] through the ER for COPD exacerbation. She is apparently on O2 at [facility], but has been up to 4L O2 here. Now back down to 2L O2. Is on day #7 rocephin and zithromax. Also on IV solumedrol initially, but on po prednisone now. Will be discharged on po prednisone. She did have some abd pain and CT abd/pelvis with possible appendicitis and gal lstones. Soquel better after having several bowel movements. Surgery was consulted, thank you, and found pt to be nonsurgical. She will be getting u/s gallbladder today. Will plan to return to [facility] today. Has been tolerating po. Was changed to honey thickened liquids. - Vitals & Intake/Output Vital Signs: Vital Signs Temperature 97.9 F 06/14/22 08:00 Pulse Rate 77 06/14/22 08:17 Respiratory Rate 16 06/14/22 08:17 Blood Pressure 113/59 06/14/22 08:00 O2 Sat by Pulse Oximetry 95 06/14/22 08:17 Intake & Output: Intake & Output 06/11/22 06/12/22 06/13/22 06/14/22 11:59 11:59 11:59 11:59 Intake Total 1200 2526 2742 1500 Output Total 250 3075 1300 Balance 1200 2276 -333 200 Weight 66.8 kg 68.7 kg 66.9 kg 66.3 kg - Lab Result Diagrams: 06/14/22 05:20 06/14/22 05:20 Lab Results-Last 24 Hrs: Lab Results-Last 24 Hours 06/14/22 06/14/22 Range/Units 05:20 05:20 WBC 13.1 H (4.0-10.5) x10^3/uL RBC 3.92 L (4.1-5.4) x10^6/uL Hgb 11.4 L (12.0-16.0) g/dL Hct 36.0 (35-47) % MCV 91.8 (78-100) fL MCH 29.1 (26-32) pg MCHC 31.7 L (32-36) g/dL RDW 14.1 H (11.5-14.0) % Plt Count 383 (150-450) x10^3/uL MPV 9.9 (7.5-11.0) fL Gran % 47.8 (36.0-66.0) % Immature Gran % (Auto) 4.5 H (0.00-0.4) % Nucleat RBC Rel Count 0.0 (0.00-0.1) % Eos # (Auto) 0.38 (0-0.5) x10^3/uL Immature Gran # (Auto) 0.59 H (0.00-0.03) x10^3u/L Absolute Lymphs (auto) 5.07 H (1.0-4.6) x10^3/uL Absolute Monos (auto) 0.71 (0.0-1.3) x10^3/uL Absolute Nucleated RBC 0.00 (0.00-0.01) x10^3u/L Lymphocytes % 38.9 (24.0-44.0) % Monocytes % 5.4 (0.0-12.0) % Eosinophils % 2.9 (0.00-5.0) % Basophils % 0.5 (0.0-0.4) % Absolute Granulocytes 6.24 (1.4-6.9) x10^3/uL Basophils # 0.06 (0-0.4) x10^3/uL Sodium 134 L (137-145) mmol/L Potassium 3.1 L (3.5-5.1) mmol/L Chloride 102 (98-107) mmol/L Carbon Dioxide 30 (22-30) mmol/L Anion Gap 5.6 (5-15) MEQ/L BUN 21 H (7-17) mg/dL Creatinine 0.45 L (0.52-1.04) mg/dL Estimated GFR > 60.0 ML/MIN Glucose 87 (74-106) mg/dL Calcium 8.2 L (8.4-10.2) mg/dL Amylase 54 (30-110) U/L Lipase 43 (23-300) U/L Slides for Path Review YES Micro Results-Entire Visit: Microbiology 06/12/22 17:56 Urine Culture - Final Urine, Indwelling Catheter <10K NORMAL SKIN LAYLA PROBABLE SKIN CONTAMINANT 06/08/22 19:20 Blood Culture Gram Stain - Final Blood Not Reportable Blood Culture - Final NO GROWTH 06/08/22 19:45 Blood Culture Gram Stain - Final Blood Not Reportable Blood Culture - Final NO GROWTH - Procedures and Test Procedures and Tests throughout Hospitalization: Therapy Orders & Screens 06/09/22 01:38 Oxygen Nasal Cannula 4 lpm Comment: Diagnosis: Hypoxia, SOB,hyponatrimia, hypokalemia Respiratory Therapy Assessment DAILY Comment: Diagnosis: Hypoxia, SOB,hyponatrimia, hypokalemia 06/09/22 07:00 Respiratory MDI BID Comment: ADVAIR 115/21 2 PUFFS BID Diagnosis: Hypoxia, SOB,hyponatrimia, hypokalemia Discharge Exam General Appearance: no apparent distress, alert Neurologic Exam: cooperative, normal mood/affect Eye Exam: eyes nml inspection Ears, Nose, Throat Exam: moist mucous membranes Neck Exam: normal inspection Respiratory Exam: normal breath sounds, lungs clear, No crackles/rales, No rhonchi, No wheezing Cardiovascular Exam: regular rate/rhythm, normal heart sounds, No murmur Gastrointestinal/Abdomen Exam: soft, normal bowel sounds, No tenderness, No distention, No mass, No guarding, No rebound Extremity Exam: normal inspection, No pedal edema, No swelling Skin Exam: normal color, warm, dry, No rash Final Diagnosis/Problem List - Final Discharge Diagnosis/Problem (1) COPD exacerbation Current Visit: Yes Status: Resolved Assessment & Plan: Has finished a course of antibiotics. Wean prednisone. Code(s): J44.1 - CHRONIC OBSTRUCTIVE PULMONARY DISEASE W (ACUTE) EXACERBATION (2) Hypoxia Current Visit: Yes Status: Chronic Code(s): R09.02 - HYPOXEMIA (3) Left hip pain Current Visit: Yes Status: Chronic Code(s): M25.552 - PAIN IN LEFT HIP (4) Leukocytosis Current Visit: Yes Status: Resolved Assessment & Plan: intermittent; likely due to steroid now. Code(s): D72.829 - ELEVATED WHITE BLOOD CELL COUNT, UNSPECIFIED (5) Cerebral palsy Current Visit: No Status: Chronic Code(s): G80.9 - CEREBRAL PALSY, UNSPECIFIED (6) Hypokalemia Current Visit: Yes Status: Resolved Code(s): E87.6 - HYPOKALEMIA - Discharge Disposition: DC TO [facility] Condition: Stable Prescriptions: New Lactobacillus Acidophilus [Acidophilus TABLET] 1 tab PO BID #10 tablet Potassium Chloride Tab* [Klor Con] 20 meq PO BID #14 tablet Prednisone 20 mg [Deltasone 20 mg] 20 mg PO DAILY #8 tablet Continue Acetaminophen 325 mg [Tylenol 325 mg] 325 mg PO Q4HPRN PRN PRN Reason: Pain polyethylene glycoL 3350 [Polyethylene Glycol 3350] 17 gm PO DAILY PRN PRN PRN Reason: Constipation Montelukast Sodium 10 mg [Singulair 10 MG] 10 mg PO HS hydroCHLOROthiazide [Hydrochlorothiazide] 25 mg PO UD Calcium Carbonate [Calcium] 1,000 mg PO DAILY Hypromellose [Tears Lubricant Eye Drop] 15 ml OP TID Ondansetron ODT 4 MG [Zofran Odt 4 mg] 4 mg PO Q6HPRN PRN PRN Reason: Nausea Diclofenac Sodium [Voltaren Arthritis Pain] 1 gm TOP Q6HPRN PRN PRN Reason: Pain Albuterol Sulfate [Albuterol Sulfate Hfa] 2 puff IH Q6HPRN PRN PRN Reason: WHEEZING Hydrocortisone 1% Cream [Cortisone 1% Cream] 1 gm TP Q8HPRN PRN PRN Reason: HEMORRHOIDS Budesonide/Formoterol Fumarate [Budesonide-Formoterol 160-4.5] 2 puff IH BID Guaifenesin/Dextromethorphan [Guaifenesin-Dm 100-10 mg/5 ml] 10 ml PO Q6HPRN PRN PRN Reason: Cough Loratadine 10 mg [Claritin 10 mg] 10 mg PO DAILY Pantoprazole 20 mg [Protonix 20MG Tablet] 20 mg PO DAILY Outpatient Orders: BMP Time Frame: 3 Days, Facility: [facility], Location: LABORATORY [facility] Time Frame: 3 Days, Facility: [facility], Location: LABORATORY Follow up with: GEOFF CLAROS MD [Primary Care Provider] -
[2022-06-14] MEDS: CLARITIN 10 MG PO SCH (09:32)
[2022-06-14] MEDS: DELTASONE 20 MG PO SCH (09:32)
[2022-06-14] MEDS: Artificial Tears 15 ML OP SCH (09:32)
[2022-06-14] MEDS: ROCEPHIN 1 Gm-D5w 50 ml Bag** 1 G/50 ML IVPB IV SCH (09:35)
[2022-06-14] MEDS: Protonix 20MG Tablet PO SCH (09:35)
[2022-06-14] MEDS: hydroDIURIL 25 MG PO SCH (09:35)
--- NOTE | 2022-06-14 11:12 | CONS ---
CONSULT DATE: 06/13/2022 HISTORY: The patient has been in the hospital a few days. She came from a senior living. 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 She wears braces at night. She really has a hard time moving and amazingly she is able to move as much as she has with this type of disease. She had some abdominal discomfort left upper quadrant. She has had studies. She incidentally has gallstone disease. There was concern that she might have appendicitis but she had been told that she had her appendix removed in the past. She has had satisfactory p.o. intake, having satisfactory bowel movements. She would like to go home. She is on antibiotics. PHYSICAL EXAMINATION: She is alert and oriented. She is feeling better. ABDOMEN: Her abdomen is totally soft. No abdominal tension. There is no abdominal mass. No abdominal tenderness. LAB DATA AND TESTS: Her white counts are reasonable. Her scans and studies are reviewed. 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 antibiotics for ten days which will be treatment for appendicitis in 2022 currently regardless even without surgical intervention, this should be adequate treatment. 2) The patient has asymptomatic gallbladder disease. The patient is not a surgical candidate. PLAN: Observation only.
[2022-06-14 11:27] VITALS: BP 151/67; PULSE 101; O2SAT 94
== END 2022-06-14 14:17 | DRG 192 ==
LOC: ED 18:34 → MED SURG 23:18 → OBSVTOIN 06-09 11:41
PROVIDERS: ADMIT Family Medicine; ATTEND Family Medicine
DX: J44.1 Chronic obstructive pulmonary disease with (acute) exacerbation (principal); R09.02 Hypoxemia; M25.552 Pain in left hip; D72.829 Elevated white blood cell count, unspecified; G80.9 Cerebral palsy, unspecified; E87.6 Hypokalemia; M06.9 Rheumatoid arthritis, unspecified; R10.31 Right lower quadrant pain; K82.9 Disease of gallbladder, unspecified; Z79.899 Other long term (current) drug therapy; Z20.828 Contact with and (suspected) exposure to other viral communicable diseases; Z99.81 Dependence on supplemental oxygen
CPT/HCPCS: 0241U; 36415; 36600; 71045; 72170; 73552; 74176; 80048; 80053; 82150; 82375; 82803; 83605; 83690; 83735; 83880; 84132; 84484; 85025; 85027; 85379; 87040; 87086; 93005; 93041; 93268; 94640; 94760; 94762; 96361; 96365; 96367; 96374; 99285; G0378; J0456; J0696; J1885; J2930; J3475; J3480; J7609; A9270-GY